=== PATIENT | female | born 1965 | race African-American/Black ===

== ENCOUNTER 2016-10-31 00:16 | Inpatient (IN) | payer MEDICARE, MEDICAID ==
[~2016-10-31] VITALS: Ht 175.3 cm; Wt 147.7 kg
--- NOTE | ~2016-10-31 | HEMODYNAMI ---
PATIENT:GILLIAN ARRIAGA MEDICAL RECORD: [id number] : 61 [id number] ADMISSION DATE: 10/31/16 Generatedon:10/31/201611:03 Patient name: GILLIAN ARRIAGA Patient #: [id number] SSN: : 1965 Date of study: 10/31/2016 Page: Of Hemodynamic Procedure Report Patient Data Patient Demographics Procedure consent was obtained First Name: GILLIAN Gender: Female Last Name: CORINA : 1965 Patient #: [id number] Age: 51 year(s) Race: Black Additional ID: [id number] Contact details [address]: [address] [place] [address] DRIVE State: [place] City: [place] Zip code: [address] Admission Admission Data Admission Date: 10/31/2016 Admission Time: 3:15 Room #: D.2119 Weight (lbs.): 326.29 Weight (kg.): 148 Procedure Procedure Types Cath Procedure Diagnostic Procedure LHC LHC w/Coronaries PCI Procedure Coronary Stent Initial Miscellaneous Procedures Moderate Sedation up to 30 minutes Procedure Description Procedure Date Procedure Date: 10/31/2016 Procedure Start Time: 10:38 Procedure End Time: 11:02 Procedure Staff Name Function Quinten Jules MD Performing Physician Naye Kaur RN Nurse Jose Lemos RT Monitor Guanakito Alcala RT Scrub Jacob Dumont RT Sealer Dry Cell Procedure Data Cath Procedure Fluoroscopy Diagnostic fluoroscopy Total fluoroscopy Time: 6.3 time: 6.3 min min Diagnostic fluoroscopy Total fluoroscopy dose: dose: 1484 mGy 1484 mGy Contrast Material Contrast Material Type Amount (ml) Isovue 300 197 Entry Location Entry Primary Successful Side Size Upsize Upsize Entry Closure Succes sful Closure Location (Fr) 1 (Fr) 2 (Fr) Remarks Device Remarks Femoral Right 5 Fr 6 Fr Exoseal artery Short Diagnostic catheters Device Type Used For End Catheter Placement Cordis 5Fr Pigtail LV Angiography Catheter (MP) Cordis 5Fr JL 4.0 Left Coronary Catheter (MP) Angiography Cordis 5Fr 3DRC Catheter Right Coronary (MP) Angiography Procedure Complications No complications Procedure Medications Medication Administration Route Dosage Oxygen NC 2 l/min Heparin Flush Bag added to field 2 bags (1000units/500ml NS) Lidocaine 2% added to field 20 Fentanyl I.V. 50 mcg Versed I.V. 1 mg Versed I.V. 1 mg Fentanyl I.V. 50 mcg Heparin Bolus I.V. 4000 units Integrilin (Bolus I.V. 11.3 ml 2mg/ml) Hemodynamics Rest Heart Rate: 76 (bpm) Snapshots Pre Cath Intra NCS Post Cath Vital Signs Time Heart Resp SPO2 NIBP (mmHg) Rhythm Pain Sedation Rate (ipm) (%) Status Level (bpm) 10:11:07 75 17 96 172/106(142) A-Fib 0 (11) 10(A) , No pain 10:15:23 77 19 98 173/102(118) A-Fib 0 (11) 10(A) , No pain 10:19:41 76 17 96 141/89(119) A-Fib 0 (11) 10(A) , No pain 10:23:47 77 16 96 136/87(116) A-Fib 0 (11) 10(A) , No pain 10:27:54 80 14 96 136/80(100) A-Fib 0 (11) 10(A) , No pain 10:32:00 92 15 96 125/85(106) A-Fib 0 (11) 10(A) , No pain 10:36:04 85 15 96 131/76(95) A-Fib 0 (11) 10(A) , No pain 10:40:08 73 16 96 134/84(110) A-Fib 0 (11) 9(A) , No pain 10:44:14 91 16 94 124/82(113) A-Fib 0 (11) 9(A) , No pain 10:48:15 85 16 95 128/81(106) A-Fib 0 (11) 9(A) , No pain 10:52:21 81 15 95 129/76(98) A-Fib 0 (11) 9(A) , No pain 10:56:23 80 20 95 143/88(113) A-Fib 0 (11) 9(A) , No pain 10:59:23 81 15 95 144/80(119) A-Fib 0 (11) 10(A) , No pain Medications Time Medication Route Dose Verified Delivered Reason Notes Effectiveness by by 10:10:48 Oxygen NC 2 Quinten Naye Per physician l/min Dhara Kaur RN 10:10:55 Heparin Flush added 2 Quinten Shipley used for Bag to bags Dhara Jules MD procedure (1000units/500ml field NS) 10:11:02 Lidocaine 2% added 20ml Quinten Hortonrey used for to vial Dhara Jules MD procedure field 10:28:06 Versed I.V. 1 mg Quinten Naye for sedation Dhara Kaur RN 10:28:33 Fentanyl I.V. 50 Quinten Naye for sedation mcg Dhara Kaur RN 10:32:06 Versed I.V. 1 mg Quinten Naye for sedation Dhara Kaur RN 10:34:13 Fentanyl I.V. 50 Quinten Naye for sedation mcg Dhara Kaur RN 10:43:47 Heparin Bolus I.V. 4000 Quinten Naye for dose units Dhara Karu RN anticoagulation verified wtih dr jules 10:45:38 Integrilin I.V. 11.3 Quinten Naye for wasted (Bolus 2mg/ml) ml Dhara Kaur RN antiplatelet 8.7 mL therapy Procedure Log Time Note 9:35:09 Jacob Dumont RT(R) (CV) sent for patient. Start room use. 9:49:05 ACC Patient presents with Unstable Angina CCS Anginal Class 3--Marked limitation of physical activity, angina occurs with ordinary activity.. 9:49:08 Diagnostic Cath status Urgent 9:49:10 Time tracking: Regular hours 9:49:14 Plan of Care:Hemodynamics will remain stable., Cardiac rhythm will remain stable., Comfort level will be maintained., Respiratory function will remain adequate., Patient/ family verbilizes understanding of procedure., Procedure tolerated without complication., Recovers from procedure without complications.. 9:59:30 Patient Weight : 148 kg 10:01:38 Patient received from PCU to CCL 2 Alert and oriented. Tansferred to table in Supine position. 10:01:40 Warm blankets applied, and myra hugger turned on for patient comfort. 10:01:41 Correct patient and procedure confirmed by team. 10:01:42 Signed procedure consent form obtained from patient. 10:01:42 ECG and BP/O2 sat monitors applied to patient. 10:03:58 H&P Date Dictated: 10/31/2016 Within 30 days and on chart.. 10:03:59 Pre-procedure instructions explained to patient. 10:04:00 Pre-op teaching completed and patient verbalized understanding. 10:04:21 Family unavailable. 10:04:22 Patient NPO since Midnight. 10:04:40 RIGHT ARM RESERVE 10:04:42 Is the patient allergic to Iodine/contrast media? No. 10:04:45 Is patient on blood thinner?Yes 10:04:48 ACC The patient was administered the following blood thiners within the last 24 hours: ACCAspirin, ACCPlavix 10:04:49 Patient diabetic? Yes. 10:04:51 If diabetic: On Metformin? No 10:04:54 Previous problem with sedation/anesthesia? No ? 10:04:55 Snore? Yes 10:04:56 Sleep apnea? Yes 10:04:57 Deviated septum? No 10:04:58 Opens mouth fully? Yes 10:04:58 Sticks out tongue? Yes 10:05:02 Airway obstruction? Yes COPD 10:05:04 Dentures? No ? 10:10:01 Vital chart was started 10:10:02 Baseline sample Acquired. 10:10:07 Rhythm: sinus rhythm 10:10:09 Full Disclosure recording started 10:10:15 Pre procedure: right dorsailis pedis pulse 1+ Palpable, but thready & weak; easily obliterated 10:10:29 PT HAS A RESERVE RT ARM. 10:10:31 Patient pain scale 0/10 ?. 10:10:42 IV patent on arrival in left antecubital with 0.9% NaCl at KVO. 10:10:48 Oxygen 2 l/min NC was administered by Naye Kaur RN; Per physician; 10:10:49 Lab results completed and on chart. 10:10:53 Right groin area was prepped with chlora-prep and draped in sterile fashion 10:10:55 Heparin Flush Bag (1000units/500ml NS) 2 bags added to field was administered by Quinten Jules MD; used for procedure; 10:10:55 Alarms reviewed by R. N. 10:10:55 Sharps counted by scrub and verified by R.N. 10:11:02 Lidocaine 2% 20ml vial added to field was administered by Quinten Jules MD; used for procedure; 10:17:44 Use device set Femoral Dx 10:17:45 Acist Syringe opened to sterile field. 10:17:45 Bag Decanter opened to sterile field. 10:17:45 Medline Cath Pack opened to sterile field. 10:17:46 Terumo 5Fr Garrison Sheath opened to sterile field. 10:17:46 St Enrico 260cm J .035 wire opened to sterile field. 10:17:47 Acist Hand Control opened to sterile field. 10:17:48 Acist Manifold opened to sterile field. 10:17:48 Diagnostic Infinity 5Fr Multipack catheter opened to sterile field. 10:17:48 Tegaderm 4 x 4 opened to sterile field. 10:24:34 Baseline sample Acquired. 10:27:44 Zero performed for pressure channel P1 10:27:49 --------ALL STOP TIME OUT------ 10:27:49 Final Timeout: patient, procedure, and site verified with staff and physician. All members of the team are in agreement. 10:27:51 Right groin site verified by team. 10:27:58 Physical assessment completed. ASA score P 2 - A patient with mild systemic disease as per Quinten Jules MD. 10:28:01 Sedation plan: IV Moderate Sedation Versed, Fentanyl 10:28:06 Versed 1 mg I.V. was administered by Naye Kaur RN; for sedation; 10:28:33 Fentanyl 50 mcg I.V. was administered by Naye Kaur RN; for sedation; 10:32:06 Versed 1 mg I.V. was administered by Naye Kaur RN; for sedation; 10:34:13 Fentanyl 50 mcg I.V. was administered by Naye Kaur RN; for sedation; 10:38:47 Procedure started. 10:38:57 Local anesthetic to right femoral artery with Lidocaine 2% by Quinten Jules MD.INITIAL ACCESS ONLY 10:39:05 A 5 Fr sheath was inserted into the Right Femoral artery 10:39:21 A Cordis 5Fr Pigtail Catheter (MP) was advanced over the wire and used for LV Angiography. 10:39:24 LV angiography performed. 10:39:26 LV gram done using PADGETT 10:39:38 EF : 70 % 10:39:42 Injector settings: Ml/sec: 10, Volume: 20, 10:39:43 Catheter removed. 10:39:49 A Cordis 5Fr JL 4.0 Catheter (MP) was advanced over the wire and used for Left Coronary Angiography. 10:39:52 LCA angiography performed. 10:40:53 Catheter removed. 10:41:08 RailpodumEdimer Pharmaceuticals 6Fr Garrison Sheath opened to sterile field. 10:41:08 Mytrusisper J 300cm 0.014 guide wire opened to sterile field. 10:41:09 [employer] Inflation Kit opened to sterile field. 10:41:12 A Cordis 5Fr 3DRC Catheter (MP) was advanced over the wire and used for Right Coronary Angiography. 10:41:14 RCA angiography performed. 10:41:51 Catheter removed. 10:42:[address] [employer] ([employer])tronic Launcher 6Fr AR 2.0 guide catheter opened to sterile field. 10:43:40 Sheath upsized to a 6 Fr Short. 10:43:46 6 Fr AR 2 guide catheter was inserted over the wire 10:43:47 Heparin Bolus 4000 units I.V. was administered by Naye Kaur RN; for anticoagulation; dose verified wtphill jules 10:43:49 WHISPER wire advanced. 10:45:21 Inflation Number: 1 A Medtronic Integrity 2.5 X 12 stent was prepped and advanced across the Dist RCA. The stent was deployed at 11 REBECA for 0:10 (min:sec). 10:45:38 Integrilin (Bolus 2mg/ml) 11.3 ml I.V. was administered by Naye Kaur RN; for antiplatelet therapy; wasted 8.7 mL 10:45:53 Inflation number: 2 The stent balloon was then re-inflated across the Dist RCA to 11 REBECA for 0:10 (min:sec). 10:46:11 Stent catheter was removed intact over wire. 10:46:12 Wire removed. 10:46:12 Guide catheter removed. 10:47:01 ACC PCI Site: dRCA has 80% stenosis. 10:47:03 ACC Pre-intervention LOC Flow is 3. 10:47:09 6 Fr EBU 4 guide catheter was inserted over the wire 10:47:14 WHISPER wire advanced. 10:48:05 Medtronic Launcher 6Fr EBU 4.0 guide catheter opened to sterile field. 10:48:12 Cordis 6Fr Exoseal opened to sterile field. 10:50:00 Procedure type changed to Cath procedure, Diagnostic procedure, LHC, LHC w/Coronaries, PCI procedure, Coronary Stent Initial, Miscellaneous Procedures, Moderate Sedation up to 30 minutes 10:50:35 The Medtronic Integrity 3.0 X 12 stent was advanced then removed because of failure to cross lesion 10:50:41 Stent catheter was removed intact over wire. 10:50:41 Wire removed. 10:50:42 Guide catheter removed. 10:51:12 Medtronic Launcher 6Fr EBU 4.5 guide catheter opened to sterile field. 10:51:20 Marcos Whisper J 300cm 0.014 guide wire opened to sterile field. 10:51:31 6 Fr EBU 4.5 guide catheter was inserted over the wire 10:52:00 NEW WHISPER wire advanced. 10:54:48 The Medtronic Integrity 3.0 X 12 stent was advanced then removed because of failure to cross lesion 10:54:53 Stent catheter was removed intact over wire. 10:54:54 Wire removed. 10:54:54 Guide catheter removed. 10:55:01 Sheath removed intact; hemostasis achieved with Exoseal to the Right Femoral artery. 10:55:21 Procedure ended.(Physican Out) 10:56:17 Fluoroscopy time 06.30 minutes. 10:56:21 Fluoroscopy dose: 1484 mGy 10:56:21 Flurop Dose total: 1484 10:56:33 Contrast amount:Isovue 300 197ml. 10:56:34 Sharps counted by scrub and verified by R.N. 10:56:34 Insertion/operative site no bleeding no hematoma. 10:56:37 Post-op/insertion site Right Femoral artery dressed using a 4 x 4 and Tegaderm. 10:56:40 Post right femoral artery:stable 10:56:42 Post Procedure Pulses reassessed and unchanged 10:56:43 Post procedure: right dorsailis pedis pulse 1+ Palpable, but thready & weak; easily obliterated. 10:56:47 Post procedure rhythm: sinus rhythm 10:56:48 Post procedure instruction explained to patient.Patient verbalizes understanding. 10:57:22 Procedure and supply charges have been captured, reviewed, submitted and are correct. 10:59:05 Procedure Complication : No complications 11:02:23 Vital chart was stopped 11:02:24 See physician's report for complete and final results. 11:02:25 Report given to PCU. 11:02:29 Patient transfered to PCU with Bed. 11:02:32 Procedure ended. 11:02:32 Full Disclosure recording stopped 11:02:47 ACC-PCI Only Patient was given prescriptions, or instructed by Quinten Jules MD to start/continue the following medications upon discharge: Plavix 11:02:48 End room use (Document Last) Intervention Summary Intervention Notes Time ActionType Lesion and Equipment Action# Pressure Duration Attributes Used 10:45:21 Place stent Dist RCA Medtronic 1 11 00:10 Integrity 2.5 X 12 stent 10:45:53 Reinflate Dist RCA Medtronic 2 11 00:10 stent Integrity balloon 2.5 X 12 stent 10:50:35 Discard Medtronic Stent Integrity 3.0 X 12 stent 10:54:48 Discard Medtronic Stent Integrity 3.0 X 12 stent Device Usage Item Name Manufacture Quantity Catalog Hospital Part Current Minimal L ot# / Number Charge Number Stock Stock Serial# Code Acist Acist 1 [id number] [id number] 886054 837184 20 Syringe Medical Systems Inc Bag Microtek 1 2002S 892509 13088 626197 5 [employer]om [employer] Inc. Medline Cardinal 1 [id number] 974712 24743 688687 5 Cath Pack Health Terumo 5Fr Terumo 1 [id number] 270314 204650 844040 [address] St Enrico 1 [id number] 262338 663100 262825 30 260cm J .035 wire Acist Hand Acist 1 19147 648714 838241 229192 5 Control Medical Systems Inc Acist Acist 1 56377 356503 762215 262639 5 Manifold Medical Systems Inc Diagnostic Cardinal 1 SD0984 276693 17074 033953 30 Car reviews 5Fr Multipack catheter Tegaderm 4 3M 1 1626W 853158 716022 366794 5 x 4 Cordis 5Fr Cardinal 1 668772 5 Pigtail Health Catheter (MP) Cordis 5Fr Cardinal 1 771201 5 JL 4.0 Health Catheter (MP) Terumo 6Fr Terumo 1 XAP325 630051 319426 484973 40 Garrison Sheath [employer] 2 [id number] 993106 669955 146102 5 Whisper J Vascular 300cm 0.014 guide wire [facility] 1 VS5834 155836 614242 096431 15 [facility] Medical Inflation Kit Cordis 5Fr Cardinal 1 341429 5 3DRC Health Catheter (MP) Medtronic Medtronic 1 [id number] 842998 29405 240961 1 Launcher 6Fr AR 2.0 guide catheter Medtronic Medtronic 1 [id number] 960410 308805 3 0 [id number] Integrity 2.5 X 12 stent Medtronic Medtronic 1 [id number] 712714 65764 546156 1 Launcher 6Fr EBU 4.0 guide catheter Cordis 6Fr Cardinal 1 EX600 762004 864158 975843 10 Exoseal Health Medtronic Medtronic 1 [id number] 888628 306707 1 0 [id number] Integrity 3.0 X 12 stent Medtronic Medtronic 1 [id number] 777769 56687 589220 0 Launcher 6Fr EBU 4.5 guide catheter Signature Audit [place] Stage Time Signature Unsigned Intra-Procedure 10/31/2016 Jose Lemos 11:03:24 AM RT(R) Signatures Monitor : Jose Lemos RT Signature : Date : Time : [facility] [address] [place] [address]
[~2016-10-31 00:16] MED LIST: ADVAIR 100/501 DISK INH; APRESOLINE25 MG PO; ATIVAN0.5 MG PO; BUSPAR10 MG PO; CATAPRES0.1 MG PO; CELEXA20 MG PO; CHILDREN'S ASPI81 MG PO; COREG25 MG PO; CRESTOR10 MG PO; DOXYCYCLINE HY100 M2 PO; DULERA 100 MCG8.8 GM INH; EFFEXOR100 MG PO; ELIQUIS5 MG PO; FISH OIL 1,0001 CA1 PO; FUROSEMIDE40 MG PO; GLIPIZIDE10 MG PO; HYDROCODON-ACE1 EAC6 PO; HYDROCODONE-APA1 TAB PO; IPRAT-ALBUT 0.5-3 ML UPD; ISOSORBIDE DINI20 MG PO; ISOSORBIDE MONO60 M1 PO; K-DUR20 MEQ PO; LANTUS INSULIN10 ML; LANTUS INSULIN10 ML SC; LASIX40 MG PO; LASIX80 MG PO; LYRICA75 MG PO; METOLAZONE2.5 MG PO; MIRALAX17 GM PO; NASONEX NASAL S17 GM NS; NORVASC10 MG PO; NOVOLOG100 U/M1 SC; PROTONIX40 MG PO; RISAMINE OINTM113 GM TP; ROCALTROL0.25 MCG PO; ROCALTROL0.5 MCG PO; RYTHMOL150 MG PO; TIAZAC/CARDIZE240 M1 PO; VENTOLIN HFA18 GM INH; ZAROXOLYN2.5 MG PO; ZESTRIL20 MG PO; ZYLOPRIM100 MG PO
[2016-10-31 01:08] LABS: BASOPHILS 0.2 % (0-2); EOSINOPHILS 0.6 % (0-7); HEMATOCRIT 40.5 % (36.0-48.0); HEMOGLOBIN 12.7 g/dL (12-16); IMMATURE GRANULOCYTES 0.5 % (0-5); MCH 28.4 pg (26.0-34.0); MCHC 31.4 g/dL (31.0-37.0); MCV 90.6 fL (80.0-100.0); MEAN PLATELET VOLUME 9.9 fL (7.4-10.4); MONOCYTES 4.8 % (2-11); NEUTROPHILS 77.9 % (40-80); RBC 4.47 10x6/uL (4.00-5.40); RDW 15.3 % (11.5-14.5); WBC 12.3 10x3/uL (4.8-10.8)
[2016-10-31 01:09] LABS: PLATELET COUNT 188 10x3/uL (130-400)
[2016-10-31 01:21] LABS: ALBUMIN 2.9 g/dL (3.4-5.0); ALKALINE PHOSPHATASE 190 U/L (46-116); ALT (SGPT) 11 U/L (10-68); CALC OSMOLALITY 288 mosm/kg (275-300); CALCIUM 8.8 mg/dL (8.5-10.1); CARBON DIOXIDE 26.9 mmol/L (21.0-32.0); CHLORIDE - SERUM 101 mmol/L (98-107); CREATININE - SERUM 7.8 mg/dL (0.6-1.3); POTASSIUM - SERUM 3.4 mmol/L (3.5-5.1); PROTEIN - SERUM 7.5 g/dL (6.4-8.2); SODIUM 137 mmol/L (136-145); UREA NITROGEN 61 mg/dL (7-18); eGFR NON AFRICAN AMERICAN 6 mL/min (90-120)
[2016-10-31 01:22] LABS: GLUCOSE 71 mg/dL (74-106)
[2016-10-31 01:39] LABS: CHOL - HDL RATIO 2.1 ratio (2.3-4.1); CHOLESTEROL, TOTAL 167 mg/dL (0-200); CKMB 1.3 U/L (0.0-3.6); CREATINE KINASE 50 UL (21-215); HDL CHOLESTEROL 81 mg/dL (32-96); LDL CHOLESTEROL 59 mg/dL (0-100); LDL-HDL RATIO 0.7 ratio (1.5-3.5); TRIGLYCERIDE 136 mg/dL (30-200)
[2016-10-31 01:40] LABS: TROPONIN-I 0.069 ng/mL (0.000-0.060)
--- NOTE | 2016-10-31 03:35 | NUR ---
REPORT RECEIVED FROM IOVNNE GOSS.
--- NOTE | 2016-10-31 03:50 | NUR ---
ARRIVED TO FLOOR VIA STRETCHER, ACCOMPANIED BY HOSPITAL STAFF. PLACED ON TELEMETRY AND ORIENTED TO UNIT. CALL LIGHT IN REACH. WILL CONTINUE TO MONITOR. SEE NURSE ASSESSMENT.
[2016-10-31 04:13] VITALS: BP 146/79
[2016-10-31] MEDS ORDERED: LANOXIN125 MCG PO (04:25)
[2016-10-31] MEDS ORDERED: PROAIR HFA8.5 GM INH (04:26)
[2016-10-31] MEDS ORDERED: BACLOFEN10 MG PO (04:26)
[2016-10-31] MEDS ORDERED: MIDODRINE HCL5 MG PO (04:27)
[2016-10-31] MEDS ORDERED: RENVELA800 MG PO (04:27)
[2016-10-31] MEDS ORDERED: SENSIPAR30 MG PO (04:27)
[2016-10-31] MEDS ORDERED: ELIQUIS2.5 MG PO (04:27)
[2016-10-31 04:28] VITALS: Ht 175.3 cm; Wt 147.7 kg
--- NOTE | 2016-10-31 07:04 | NUR ---
NO CHANGES FROM PREVIOUS ASSESSMENT, CALL LIGHT IN REACH.
[2016-10-31 08:08] VITALS: BP 112/63
--- NOTE | 2016-10-31 10:06 | NUR ---
CONSENTS SIGNED FOR [facility]. PRE-OPS GIVEN. TO MEDICAL ADMINISTRATIVE BY BED.
--- NOTE | 2016-10-31 11:23 | NUR ---
BACK FROM PET CAREGIVER. VS WNL. RIGHT GROIN STABLE WITHOUT BLEEDING OR HEMATOMA NOTED. WILL MONITOR.
[2016-10-31] MEDS ORDERED: PLAVIX75 MG PO (13:18)
--- NOTE | 2016-10-31 14:14 | NUR ---
LEAVING FOR DIALYSIS BY BED.
--- NOTE | 2016-10-31 15:03 | NUR ---
Patient Name: GILLIAN ARRIAGA Admission Status: ER Accout number: [id number] Admission Date: 10-31-2016 : 1965 Admission Diagnosis:CHEST PAIN, UNSPECIFIED Attending: SASCHA Current LOS: 1 Anticipated DC Date: 10-31-2016 Planned Disposition: Home with Home Health Primary Insurance: MEDICARE A & B PREFERRED DISCHARGE PLAN: [facility] Discharge Planning Comments: * Is the patient Alert and Oriented? Yes 0 * How many steps to enter\exit or inside your home? NONE 0 * PCP DR. ISAIAH CHENG 0 * Pharmacy [facility] 0 * Preadmission Environment Home Alone 0 * ADLs Partial Dependent 0 * Partial ADLs (Assistance needed) Bathing 0 * Equipment Bedside Commode CPAP Glucometer Hospital Bed Nebulizer Oxygen Shower Chair Walker 0 * Other Equipment [facility] EMERGENCY [facility]- MEDICAL EQUIPMENT PROVIDER 0 * List name and contact numbers for known caregivers / representatives who currently or will assist patient after discharge: MARY HEMPHILL, DAUGHTER, 0 * Community resources currently utilized Home Health Other Private Duty Care 0 * Please name any agencies selected above. -[facility] - NURSING -OUTPATIENT DIALYSIS, [facility], MWF, 0630, DAUGHTER TRANSPORTS -DAUGHTER PAID BY [facility] FOR 21 HOURS PERSONAL CARE PER WEEK 0 * Additional services required to return to the preadmission environment? No 0 * Can the patient safely return to the preadmission environment? Yes 0 * Has this patient been hospitalized within the prior 30 days at any hospital? No 0 CM MET WITH PT AND DAUGHTER IN ROOM TO DISCUSS DISCHARGE PLANNING AND NEEDS. PT REPORTS LIVING AT HOME INDEPENDENTLY, HER DAUGHTER IS PAID BY MEDICAID THROUGH [facility] TO ASSIST PT FOR 21 HOURS OF PERSONAL CARE PER WEEK. PT'S DAUGHTER REPORTS SHE IS THERE A LOT MORE THAN THAT. PT REPORTS HAVING ALL NEEDED MEDICAL EQUIPMENT FROM [facility] EMERGENCY DEPARTMENT AT HOME. PT HAS HOME HEALTH FROM [facility], ATTENDS OUTPATIENT DIALYSIS ON MWF, 0630, [facility], DAUGHTER TRANSPORTS. PT DENIES DISCHARGE NEEDS OTHER THAN HOME HEALTH RESUMPTION. PT'S DAUGHTER TO TRANSPORT PT HOME TODAY. CM CALLED [facility], , SPOKE TO MARYCARMEN TO RESUME PT'S HOME HEALTH, CM FAXED DISCHARGE INFORMATION TO [facility] AT [phone]. NO FURTHER DISCHARGE NEEDS IDENTIFIED. Proofer Prepress: Con [facility]
--- NOTE | 2016-10-31 18:23 | NUR ---
BACK FROM DIALYSIS. VS STABLE.
--- NOTE | 2016-11-01 00:39 | NUR ---
INITIAL ROUNDS COMPETED AT 5 HRS. INFORMED PT WILL DC SOON. IV TO LFA DC'D WITH CATHETER INTACT. R GROIN CLEAN, DRY AND INTACT WITHOUT SWELLING, BRUISING OR BLEEDING. PALPABLE PEDAL PULSES. PT DENIED ANY DISCOMFORT. INFORMED PT AND FAMILY MEMBER TO CALL P[facility]LO FOR ANY BLEEDING, SWELLING, OR SEVERE PAIN TO R GROIN. RX FOR PLAVIX GIVEN. INFORMED TO FILL TONIGHT OR IN AM. INSTRUCTIONS GIVEN AND EXPLAINED TO PT. STATED VERBAL UNDERSTANDING. TO POV VIA W/C AT 1934 HRS.
--- NOTE | 2016-11-04 18:07 | CN ---
PATIENT NAME:GILLIAN PETIT MEDICAL RECORD: [id number] : 61 LOCATION:D.M2 D.2119 ADMIT DATE: 10/31/16 ACCOUNT: [id number] CONSULTING PHYSICIAN: EKATERINA VALDEZ MD REFERRING PHYSICIAN: KALIA TAPIA MD DATE OF CONSULTATION: 10/31/2016 DIAGNOSES: 1. Non-Q-wave myocardial infarction. 2. End-stage renal failure, on dialysis. 3. Diabetes. 4. Hypertension. 5. Hyperlipidemia. 6. Chronic obstructive pulmonary disease. 7. Smoking history. 8. Obesity. HISTORY OF PRESENT ILLNESS: Mrs. Petit presents with severe chest pain. She did rule in for a non-Q-wave myocardial infarction. She has not had a history of ischemic heart disease in the past. She continued to have chest pain this morning. She is set to dialyze Thursday, Thursday and Thursday. PHYSICAL EXAMINATION: GENERAL APPEARANCE: Well-nourished, well-developed, appears stated age. Level of distress, comfortable. PSYCHIATRIC: Mental status, alert, normal affect. Orientation, oriented to time, place and person. EYES: Lids and conjunctiva, noninjected. No discharge, no pallor. ENT: Lips, teeth, gums, normal dentition. Oropharynx, no cyanosis, no pallor. NECK: Carotid arteries, bilateral normal upstroke, no bruits, no thrills. JUGULAR VEINS: No jugular venous pressure or distention. CERVICAL LYMPH NODES: Nontender, nonenlarged. THYROID: Not enlarged. Nontender. No nodules. LUNGS: Respiratory effort, unlabored. CHEST: Normal curvature. No thoracic deformity. No chest wall tenderness. Percussion, resonant. Auscultation, clear. No wheezes, no rales, no rhonchi. CARDIOVASCULAR: Precordial exam, nondisplaced. No heaves or pericardial thrills. Rate and rhythm, regular. Heart sounds, normal S1, normal S2. No S3, no gallop, no rub. Systolic murmur, not heard. Diastolic murmur, not heard. EXTREMITIES: No cyanosis, no edema. Peripheral pulses, full and equal in all extremities, except as noted. No bruits appreciated. ABDOMEN: Soft, nondistended. Normal aorta. No bruit. Nontender. No masses. Liver, nontender, no hepatomegaly. Spleen, nontender, no splenomegaly. MUSCULOSKELETAL: No joint tenderness. No joint swelling. No erythema. NEUROLOGICAL: Normal gait, normal strength, normal tone. SKIN: Warm and dry. REVIEW OF SYSTEMS: The patient reports easy bruising but reports no swollen glands. The patient reports no fever, no night sweats, no significant weight gain, no significant weight loss. No significant exercise tolerance. The patient reports no dry eyes, no irritation, no vision change. Patient reports no difficulty hearing and no ear pain. Patient reports no frequent nose bleeds or nose and sinus problems. Patient reports on arm pain on exertion. No shortness of breath while lying down. No history of heart murmur. Patient reports no cough, no wheezing or coughing up blood. Patient reports no CONSULT REPORT [id number] GILLIAN PETIT abdominal pain, no vomiting. Normal appetite. No diarrhea and not vomiting blood. No nausea and no constipation. Patient reports no incontinence. No difficulty urinating. No hematuria. No increased frequency. Patient reports no muscle aches. No weakness, no arthralgias, no back pain. No swelling of the extremities. Patient reports no abnormal mole, no jaundice, no rashes. Reports no loss of consciousness. No weakness and no numbness. No seizures, dizziness, or headaches. The patient reports no depression, no sleep disturbance, feeling safe in a relationship and no alcohol abuse. Patient reports on fatigue. Reports no runny nose or sinus pressure. No itching, no hives, and no frequent sneezing. OVERALL IMPRESSION: Chest pain, ongoing, with a non-Q-wave myocardial infarction. Most likely, she has hemodynamically significant coronary artery disease. We will proceed with coronary angiography. Further care depends upon the findings of angiography. TRANSINT:[id number] Voice Confirmation ID: [id number] DOCUMENT ID: [id number] EKATERINA VALDEZ MD at 1807 CC: [id number] DICTATION DATE: 10/31/16940 ASSOCIATE PROFESSOR OF SURGERY: 10/31/16955 DIS IN 10/31/16 [facility] [address] [id number]
--- NOTE | 2016-11-04 18:07 | OP ---
PATIENT NAME: GILLIAN ARRIAGA MEDICAL RECORD: [id number] :61 LOCATION:D.M2 D.2119 ADMISSION DATE:10/31/16 SURGEON: EKATERINA VALDEZ MD DATE OF OPERATION: 10/31/2016 PROCEDURES: 1. PTCA stent RCA. 2. Left heart catheterization. 3. Selective coronary angiography. 4. Left ventriculogram. INDICATION: Angina, non-Q-wave myocardial infarction, and coronary artery disease. PROCEDURE: After informed consent was obtained and after detailed explanation of risks, benefits as well as alternative therapies, the patient elected to proceed with angiogram and angioplasty. The right femoral area was prepped and draped in normal sterile fashion. The right femoral artery was cannulated via modified Seldinger technique with placement of 6-Pashto sheath. All catheters exchanged through this sheath. FINDINGS: Left ventriculogram was performed in standard 30-degree PADGETT view reveals good cardiac wall motion throughout all segments. Overall ejection fraction estimated at 60%. SELECTIVE CORONARY ANGIOGRAPHY: 1. Left main showed no significant angiographic disease. 2. Left anterior descending has moderate irregularities, but no flow-limiting stenosis. 3. The left circumflex is very tortuous. There is a 50% to 70% stenosis in the distal vessel; however, due to the extreme tortuosity, this is not amenable to transcatheter revascularization. 4. The right coronary has an 80% stenosis of the PDA. PTCA STENT OF THE RIGHT CORONARY: The stent used was a 2.5 x 12 mm Integrity taken to 17 atmospheres. Result was 0% residual stenosis. OVERALL IMPRESSION: Successful percutaneous transluminal coronary angioplasty stent of the right coronary artery going from 80% initial stenosis to 0% residual. PLAN: For medical management of the concomitant disease of the left circumflex. TRANSINT:[id number] Voice Confirmation ID: [id number] DOCUMENT ID: [id number] EKATERINA VALDEZ MD at 1807 CC: [id number] DICTATION DATE: 10/31/16 1101 METAL TEMPERER: 10/31/16 1832 DIS IN 10/31/16 [facility] [address] [place] [address]
== END 2016-10-31 19:35 | disposition home health service (06) | DRG 248 ==
LOC: D.ER 00:16 → D.M2 03:15
PROVIDERS: Emergency Medicine; Internal Medicine Interventional Cardiology; ADMIT Internal Medicine Nephrology
PROC: 4A023N7 Measurement of Cardiac Sampling and Pressure, Left Heart, Percutaneous Approach (ICD-10-PCS; 2016-10-31)
PROC: B2111ZZ Fluoroscopy of Multiple Coronary Arteries using Low Osmolar Contrast (ICD-10-PCS; 2016-10-31)
PROC: B2151ZZ Fluoroscopy of Left Heart using Low Osmolar Contrast (ICD-10-PCS; 2016-10-31)
PROC: 5A1D00Z (ICD-10-PCS; principal; 2016-10-31 10:00)
PROC: 02703DZ Dilation of Coronary Artery, One Artery with Intraluminal Device, Percutaneous Approach (ICD-10-PCS; 2016-10-31 10:00)
DX: I21.4 Non-ST elevation (NSTEMI) myocardial infarction (principal); N18.6 End stage renal disease; I12.0 Hypertensive chronic kidney disease with stage 5 chronic kidney disease or end stage renal disease; I25.119 Atherosclerotic heart disease of native coronary artery with unspecified angina pectoris; E11.22 Type 2 diabetes mellitus with diabetic chronic kidney disease; Z99.2 Dependence on renal dialysis; E78.5 Hyperlipidemia, unspecified; J44.9 Chronic obstructive pulmonary disease, unspecified; E66.9 Obesity, unspecified; Z72.0 Tobacco use

== ENCOUNTER 2017-01-07 11:28 | Observation (INO) | payer MEDICARE ==
[~2017-01-07] VITALS: Ht 175.3 cm; Wt 110.6 kg
--- NOTE | ~2017-01-07 | HEMODYNAMI ---
PATIENT:GILLIAN ARRIAGA MEDICAL RECORD: [id number] : 61 LOCATION:[facility] D.2107 [id number] ADMISSION DATE: 01/07/17 Generatedon:01/08/201714:50 Patient name: GILLIAN ARRIAGA Patient #: [id number] SSN: : 1965 Date of study: 01/08/2017 Page: Of Hemodynamic Procedure Report Patient Data Patient Demographics Procedure consent was obtained First Name: GILLIAN Gender: Female Last Name: CORINA : 1965 [facility] Initial: JAMIR Burrows Age: 51 year(s) Patient #: [id number] Race: Black Additional ID: [id number] Contact details Address: [address] State: [place] City: [place] Zip code: [address] Past Medical History Allergies Allergen Reaction Date Comments Reported Penicillins 01/08/2017 Morphine 01/08/2017 Other allergy 01/08/2017 keflex, Lyrica, Januvia, Adhesive tape Admission Admission Data Admission Date: 01/07/2017 Admission Time: 11:28 Room #: D.2107 Lab Results Lab Result Date: 01/07/2017 Lab Result Time: 0:00 Biochemistry Name Units Result Min Max BUN mg/dl 36 --(----)-* 7 18 Creatinine mg/dl 6.2 --(----)-* 0.6 1.3 Potassium mmol/l 3 *-(----)-- 3.5 5.1 CBC Name Units Result Min Max Hemoglobin g/dl 11.7 *-(----)-- 13.5 17.5 Procedure Procedure Types Cath Procedure Diagnostic Procedure C [facility] w/Coronaries Procedure Description Procedure Date Procedure Date: 01/08/2017 Procedure Start Time: 14:37 Procedure End Time: 14:49 Procedure Staff Name Function Raheel Joshi MD Performing Physician Nora Maddox RT Scrub Kelvin Rodriguez RN Nurse Jacob Dumont RT Monitor Procedure Data Cath Procedure Fluoroscopy Diagnostic fluoroscopy Total fluoroscopy Time: 1.2 time: 1.2 min min Diagnostic fluoroscopy Total fluoroscopy dose: 558 dose: 558 mGy mGy Contrast Material Contrast Material Type Amount (ml) Isovue 300 64 Entry Location Entry Primary Successful Side Size Upsize Upsize Entry Closure Succes sful Closure Location (Fr) 1 (Fr) 2 (Fr) Remarks Device Remarks Femoral Right 5 Fr Exoseal artery Estimated blood loss: 10 ml Diagnostic catheters Device Type Used For End Catheter Placement Cordis 5Fr JL 4.0 Procedure Catheter (MP) Cordis 5Fr 3DRC Catheter Procedure (MP) Cordis 5Fr Pigtail Procedure Catheter (MP) Procedure Medications Medication Administration Route Dosage Oxygen NC 2 l/min Heparin Flush Bag added to field 2 bags (1000units/500ml NS) 0.9% NaCl I.V. 100 ml/hr Fentanyl I.V. 50 mcg Versed I.V. 1 mg Fentanyl I.V. 50 mcg Versed I.V. 1 mg Zofran I.V. 4 mg Fentanyl I.V. 50 mcg Versed I.V. 1 mg Fentanyl I.V. 50 mcg Versed I.V. 1 mg Hemodynamics Rest HGB: 11.7 (g/dl) Heart Rate: 72 (bpm) Pressure Samples Time Site Value (mmHg) Purpose Heart Use Rate(bpm) 14:43 LV 102/4,16 Snapshot 64 14:43 AO 83/50(64) Pullback 67 14:43 LV 98/7,20 Pullback 67 Gradients Valve Time Site 1 Site 2 Mean SEP/DFP Peak To Heart Use (mmHg) (sec/min) Peak Rate (mmHg) (bpm) Aortic 14:43 LV AO 14 10 15 67 98/7,20 83/50(64) Calculations Valve P-P Mean Valve Index Valve Source Name Gradient Area Flow (cm2) Aortic 15 14 15 14 Snapshots Pre Cath Intra NCS Post Cath Vital Signs Time Heart Resp SPO2 NIBP (mmHg) Rhythm Pain Sedation Rate (ipm) (%) Status Level (bpm) 14:04:52 67 18 94 121/75(101) NSR 0 (11) 10(A) , No pain 14:09:06 62 16 98 114/75(91) NSR 0 (11) 10(A) , No pain 14:13:18 71 18 100 117/75(104) NSR 0 (11) 10(A) , No pain 14:17:30 66 19 98 116/73(98) NSR 0 (11) 10(A) , No pain 14:21:40 64 19 98 105/75(91) NSR 0 (11) 10(A) , No pain 14:25:54 79 18 97 101/60(78) NSR 0 (11) 10(A) , No pain 14:30:06 70 18 98 101/59(81) NSR 0 (11) 10(A) , No pain 14:34:16 63 17 97 95/62(86) NSR 0 (11) 9(A) , No pain 14:38:23 65 18 96 83/59(70) NSR 0 (11) 9(A) , No pain 14:42:29 66 19 94 90/56(67) NSR 0 (11) 9(A) , No pain 14:46:39 67 17 95 90/52(66) NSR 0 (11) 9(A) , No pain Medications Time Medication Route Dose Verified Delivered Reason Notes Effec tiveness by by 14:04:35 Oxygen NC 2 Kelvin Kelvin Per l/min Michael Rodriguez RN physician RN 14:10:13 Heparin Flush added 2 Kelvin Kelvin used for Bag to bags Michael Rodriguez biology specialist (1000units/500ml field RN NS) 14:10:30 0.9% NaCl I.V. 100 Kelvin Kelvin Per ml/hr Michael Rodriguez RN physician RN 14:11:35 Zofran I.V. 4 mg Kelvin Kelvin Per Michael Rodriguez RN physician RN 14:30:53 Fentanyl I.V. 50 Kelvin Kelvin for [facility] Michael Rodriguez RN sedation RN 14:31:00 Versed I.V. 1 mg Kelvin Kelvin for Michael Rodriguez RN sedation RN 14:32:59 Fentanyl I.V. 50 Kelvin Kelvin for [facility] Michael Rodriguez RN sedation RN 14:33:03 Versed I.V. 1 mg Kelvin Kelvin for Michael Rodriguez RN sedation RN 14:37:43 Fentanyl I.V. 50 Kelvin Kelvin for [facility] Michael Rodriguez RN sedation RN 14:37:46 Versed I.V. 1 mg Kelvin Kelvin for Michael Rodriguez RN sedation RN 14:42:47 Fentanyl I.V. 50 Kelvin Warren for mcg Michael Rodriguez RN sedation RN 14:42:49 Versed I.V. 1 mg Kelvin Warren for Michael Rodriguez RN sedation digital sales representative Log Time Note 13:40:32 Jacob Tim RT(R) (CV) sent for patient. Start room use. 14:03:45 Vital chart was started 14:04:35 Oxygen 2 l/min NC was administered by Kelvin Rodriguez RN; Per physician; 14:08:33 Informed consent obtained and on chart 14:08:37 Diagnostic Cath Status : Elective 14:09:59 Time tracking: Regular hours 14:10:04 Plan of Care:Hemodynamics will remain stable., Cardiac rhythm will remain stable., Comfort level will be maintained., Respiratory function will remain adequate., Patient/ family verbilizes understanding of procedure., Procedure tolerated without complication., Recovers from procedure without complications.. 14:10:12 Patient received from PCU to CCL 2 Alert and oriented. Tansferred to table in Supine position. 14:10:13 Heparin Flush Bag (1000units/500ml NS) 2 bags added to field was administered by Kelvin Rodriguez RN; used for procedure; 14:10:14 Warm blankets applied, and myra hugger turned on for patient comfort. 14:10:15 Correct patient and procedure confirmed by team. 14:10:30 0.9% NaCl 100 ml/hr I.V. was administered by Kelvin Rodriguez RN; Per physician; 14:11:04 Patient in [facility] as last name Diamond from 12/26/2016 14:11:07 Baseline sample Acquired. 14:11:17 Rhythm: atrial fibrillation 14:11:20 Full Disclosure recording started 14:11:35 Zofran 4 mg I.V. was administered by Kelvin Rodriguez RN; Per physician; 14:14:22 Pre-procedure instructions explained to patient. 14:14:23 Pre-op teaching completed and patient verbalized understanding. 14:14:26 Family unavailable. 14:14:29 Patient NPO since Breakfast. 14:14:54 Patient allergic to Penicillins 14:15:19 Patient allergic to Morphine 14:16:49 Patient allergic to Other allergy keflex, Lyrica, Januvia, Adhesive tape 14:17:08 H&P Date Dictated: 01/08/2017 Within 30 days and on chart.. 14:17:13 Is the patient allergic to Iodine/contrast media? No. 14:17:16 Is patient on blood thinner?Yes 14:17:21 ACC The patient was administered the following blood thiners within the last 24 hours: ACCPlavix 14:18:55 Patient diabetic? Yes. 14:18:57 If diabetic: On Metformin? No 14:22:06 ----Pre-sedation anethsthesia assessment.---- 14:22:08 Previous problem with sedation/anesthesia? No ? 14:22:10 Snore? Yes 14:22:12 Sleep apnea? Yes 14:22:16 Zero performed for pressure channel P1 14:22:44 Deviated septum? No 14:22:55 Opens mouth fully? Yes 14:22:57 Sticks out tongue? Yes 14:23:53 Airway obstruction? Yes COPD 14:23:59 Dentures? No ? 14:24:24 Pre procedure: right dorsailis pedis pulse Doppler 14:24:29 Patient pain scale 0/10 ?. 14:24:36 IV patent on arrival in left forearm with 0.9% NaCl at [facility]. 14:25:19 Lab Result : Hemoglobin 11.7 g/dl 14:25:35 Lab results completed and on chart. 14:25:43 Right groin area was prepped with chlora-prep and draped in sterile fashion 14:25:46 Alarms reviewed by R. N. 14:25:46 Sharps counted by scrub and verified by R.N. 14:27:47 Lab Result : BUN 36 mg/dl 14:27:47 Lab Result : Creatinine 6.2 mg/dl 14:28:23 Lab Result : Potassium 3 mmol/l 14:29:09 Dr. Joshi done in room 3 14:29:52 Use device set Femoral Dx 14:29:59 Acist Syringe opened to sterile field. 14:29:59 Bag Decanter opened to sterile field. 14:30:00 Medline Cath Pack opened to sterile field. 14:30:01 Terumo 5Fr [facility] She[facility] opened to sterile field. 14:30:02 St Enrico 260cm J .035 wire opened to sterile field. 14:30:04 Acist Hand Control opened to sterile field. 14:30:05 Acist Manifold opened to sterile field. 14:30:07 Diagnostic Infinity 5Fr Multipack catheter opened to sterile field. 14:30:08 Tegaderm 4 x 4 opened to sterile field. 14:30:24 Physician arrived 14:30: --------ALL STOP TIME OUT------ 14:30: Final Timeout: patient, procedure, and site verified with staff and physician. All members of the team are in agreement. 14:30: Right groin site verified by team. 14:30:35 Physical assessment completed. ASA score P 2 - A patient with mild systemic disease as per Raheel oJshi MD. 14:30:39 Sedation plan: IV Moderate Sedation Versed, Fentanyl 14:30:53 Fentanyl 50 mcg I.V. was administered by Kelvin Rodriguez RN; for sedation; 14:31:00 Versed 1 mg I.V. was administered by Kelvin Rodriguez RN; for sedation; 14:32:59 Fentanyl 50 mcg I.V. was administered by Kelvin Rodriguez RN; for sedation; 14:33:03 Versed 1 mg I.V. was administered by Kelvin Rodriguez RN; for sedation; 14:37:28 Procedure started. 14:37:43 Fentanyl 50 mcg I.V. was administered by Kelvin Rdoriguez RN; for sedation; 14:37:46 Versed 1 mg I.V. was administered by Kelvin Rodriguez RN; for sedation; 14:37:53 Local anesthetic to right femoral artery with Lidocaine 2% by Raheel Joshi MD.INITIAL ACCESS ONLY 14:38:37 A 5 Fr sheath was inserted into the Right Femoral artery 14:38:53 A Cordis 5Fr JL 4.0 Catheter (MP) was advanced over the wire and used for Procedure. 14:39:43 LCA angiography performed. 14:40:24 Catheter removed. 14:40:48 A Cordis 5Fr 3DRC Catheter (MP) was advanced over the wire and used for Procedure. 14:41:30 RCA angiography performed. 14:41:46 Catheter removed. 14:41:53 A Cordis 5Fr Pigtail Catheter (MP) was advanced over the wire and used for Procedure. 14:42:47 Fentanyl 50 mcg I.V. was administered by Kelvin Rodriguez RN; for sedation; 14:42:49 Versed 1 mg I.V. was administered by Kelvin Rodriguez RN; for sedation; 14:42:51 Cordis 5Fr Exoseal opened to sterile field. 14:43:25 LV hemodynamics recorded. 14:43:31 EF : 50 % 14:43:58 Catheter removed. 14:44:16 Sheath removed intact; hemostasis achieved with Exoseal to the Right Femoral artery. 14:44:36 Procedure ended.(Physican Out) 14:47:07 Fluoroscopy time 01.20 minutes. 14:47:13 Fluoroscopy dose: 558 mGy 14:47:13 Flurop Dose total: 558 14:47:19 Contrast amount:Isovue 300 64ml. 14:47:21 Sharps counted by scrub and verified by R.N. 14:47:41 Insertion/operative site no bleeding no hematoma. 14:47:46 Post-op/insertion site Right Femoral artery dressed using a 4 x 4 and Tegaderm. 14:47:50 Post right femoral artery:stable 14:47:59 Post-procedure physical assessment completed. ASA score P 2 - A patient with mild systemic disease as per Raheel Joshi MD. 14:48:30 Post procedure rhythm: unchanged., atrial fibrillation 14:48:35 Estimated blood loss: 10 ml 14:48:41 Post procedure instruction explained to patient.Patient verbalizes understanding. 14:48:44 Patient needs reinforcement of post procedure teaching. 14:48:46 Procedure and supply charges have been captured, reviewed, submitted and are correct. 14:49:30 Vital chart was stopped 14:49:31 See physician's report for complete and final results. 14:49:36 Report given to [facility]. 14:49:39 Patient transfered to [facility] with Bed. 14:49:41 Procedure ended. 14:49:41 Full Disclosure recording stopped 14:49:46 End room use (Document Last) Device Usage Item Name Manufacture Quantity Catalog Hospital Part Current Minimal Lo t# / Number Charge Number Stock Stock Serial# Code Acist Acist 1 98946 523016 914859 183374 20 Syringe Medical Systems Inc Bag Microtek 1 2002S 610574 37968 067361 5 [employer]. Medline Cardinal 1 [id number] 826770 34278 320884 5 Cath Pack Health Terumo 5Fr Terumo 1 EBM286 692879 084124 385265 [address] Enrico 1 933866 867584 033175 766560 30 260cm J .035 wire Acist Hand Acist 1 59232 448093 332966 967108 5 Control Medical Systems Inc Acist Acist 1 44036 049208 152930 507838 5 Manifold Medical Systems Inc Diagnostic Cardinal 1 SI4985 430705 49097 957213 30 Infinity Health 5Fr Multipack catheter Tegaderm 4 3M 1 1626W 479282 079900 567941 5 x 4 Cordis 5Fr Cardinal 1 074738 5 JL 4.0 Health Catheter (MP) Cordis 5Fr Cardinal 1 [id number] 5 3DRC Health Catheter (MP) Cordis 5Fr Cardinal 1 429174 5 Pigtail Health Catheter (MP) Cordis 5Fr Cardinal 1 EX500 399090 261683 457940 10 [facility] Signature Audit [place] Stage Time Signature Unsigned Intra-Procedure 01/08/2017 Jacob Dumont 2:50:18 PM RT(R) (CV) Signatures Monitor : Jacob Dumont RT Signature : Date : Time : [place] [id number] [facility] [address]
[~2017-01-07 11:28] MED LIST changes: +BACLOFEN10 MG PO; +ELIQUIS2.5 MG PO; +LANOXIN125 MCG PO; +MIDODRINE HCL5 MG PO; +PLAVIX75 MG PO; +PROAIR HFA8.5 GM INH; +RENVELA800 MG PO; +SENSIPAR30 MG PO
[2017-01-07 12:10] VITALS: BP 103/51
--- NOTE | 2017-01-07 12:23 | NUR ---
PAGED DR TRINIDAD FOR MEDICATION ORDERS. C/O CHEST PAIN. AND N/V. PT ON TELE RUNNING CONTROLLED AFIB 70 BPM. WILL CONT TO MONITOR
--- NOTE | 2017-01-07 12:53 | NUR ---
SPOKE WITH DR TRINIDAD. REORDERED HOME MEDS AND ZOFRAN. SAID TO HOLD ELIQUIS FOR NOW. STUDENT NETEZZA DEVELOPER TRIED TO SITE PT X2 STICKS. CALLED MARTI AVERY TO TRY AND START IV FOR PT.
--- NOTE | 2017-01-07 13:11 | NUR ---
CONSENTS FOR HEART CATH SIGNED AND ON THE CHART. ALSO CONSENT FOR BLOOD.
[2017-01-07 13:31] LABS: BASOPHILS 0.1 % (0-2); EOSINOPHILS 0.4 % (0-7); HEMATOCRIT 38.2 % (36.0-48.0); HEMOGLOBIN 11.7 g/dL (12-16); IMMATURE GRANULOCYTES 0.5 % (0-5); LYMPHOCYTES 14.3 % (15-50); MCH 25.3 pg (26.0-34.0); MCHC 30.6 g/dL (31.0-37.0); MCV 82.7 fL (80.0-100.0); MEAN PLATELET VOLUME 9.5 fL (7.4-10.4); MONOCYTES 5.3 % (2-11); NEUTROPHILS 79.4 % (40-80); PLATELET COUNT 195 10x3/uL (130-400); RBC 4.62 10x6/uL (4.00-5.40); WBC 11.3 10x3/uL (4.8-10.8)
[2017-01-07 13:36] LABS: DIGOXIN 1.16 ng/mL (0.90-2.00)
--- NOTE | 2017-01-07 15:56 | NUR ---
MARTI TRIED TO SITE PT. PIV WAS NOT GOOD. DC WITH CATH TIP INTACT.
[2017-01-07 16:27] VITALS: BP 111/61
--- NOTE | 2017-01-07 18:04 | NUR ---
PT SITTING UP IN BED DENIES NEEDS FAMILY AT BEDSIDE
[2017-01-07 19:00] VITALS: BP 87/43
--- NOTE | 2017-01-07 19:40 | NUR ---
PT AWAKE, ALERT, ORIENTED, REQUESTING PAIN MEDICATION, STATES SHE HURTS ALL OVER. PT IS IN NO ACUTE DISTRESS AT THIS TIME. I EXPLAINED THAT HER PAIN MEDICATION IS ORDERED PRN Q 8 HOURS AND IT WAS TOO EARLY. PT STATES HER NAUSEA IS IMPROVED WITH ZOFRAN, AND SHE WAS ABLE TO KEEP DOWN HER BROTH. PT DENIES ANY OTHER NEEDS AT THIS TIME. WILL CONTINUE TO MONITOR CLOSELY.
[2017-01-08] VITALS: BP 84/40
--- NOTE | 2017-01-08 05:15 | NUR ---
PT HAS HAD RECURRENT BOUTS OF NAUSEA WITH VOMITING OF GREEN BILE MOST OF SHIFT. PRN PO ODT ZOFRAN BEING GIVEN Q 4 WITHOUT MUCH CONTROL. ECG PRINTED OFF FROM TELEMETRY AND CARDIAC ENZYMES ORDERED FOR THIS A.M. PT REMAINS IN CONTROLLED A-FIB, WHICH SHE STATES IS HER CHRONIC BASELINE. PT STATES SHE TAKES DIGOXIN ONLY ON THE DAYS SHE HAS DIALYSIS. PT IS AWAKE, ALERT, ORIENTED, AND WISHES TO HAVE SOMETHING FOR BETTER CONTROL OF HER N/V. PT DID SHOWER THIS A.M. CONTINUE TO MONITOR CLOSELY.
--- NOTE | 2017-01-08 06:45 | NUR ---
LEFT FOREARM IV SITED BY AMANUEL CHAN RN WITH ONE ATTEMPT, 22 GAUGE, SL
--- NOTE | 2017-01-08 07:30 | NUR ---
AM ROUNDS COMPLETED. COMMUNICATION BOARD FILLED OUT. PT RESTING QUIETLY IN BED WITH EYES CLOSED. RR NONLABORED. CL IN REACH, BED IN LOWEST, SIDE RAILS X2. WILL CHART CHECK AND CPOC.
[2017-01-08 08:05] LABS: CALC OSMOLALITY 286 mosm/kg (275-300); CALCIUM 7.7 mg/dL (8.5-10.1); CHLORIDE - SERUM 98 mmol/L (98-107); CKMB 0.6 U/L (0.0-3.6); CREATINE KINASE 40 UL (21-215); CREATININE - SERUM 6.2 mg/dL (0.6-1.3); GLUCOSE 120 mg/dL (74-106); SODIUM 139 mmol/L (136-145); TROPONIN-I 0.082 ng/mL (0.000-0.060); UREA NITROGEN 36 mg/dL (7-18); eGFR NON AFRICAN AMERICAN 7 mL/min (90-120)
--- NOTE | 2017-01-08 08:54 | NUR ---
RECEIVED A CALL FROM A NURSE (FORGOT NAME) AT [facility]. THEY STATED THEY ARE FOLLOWING THE PATIENT AND ARE REQUESTING A CALL IF HER STATUS CHANGES TO INPATIENT OR SHE IS DISCHARGED. WILL CALL THEM AT [phone] PER THEIR REQUEST.
[2017-01-08 09:18] VITALS: BP 98/51
--- NOTE | 2017-01-08 09:38 | NUR ---
PT C/O CONSTANT NAUSEA. REQUESTING AND PROVIDED WITH PRN ZOFRAN. PT IS NOW NPO FOR CATH LATER TODAY. PT HAD LIGHT BREAKFAST AND VERBALIZED UNDERSTANDING OF NPO AND IS AWAITING CATH. NO FURTHER NEEDS AT THIS TIME. CL IN REACH, BED IN LOWEST, SIDE RAILS X2. WILL CPOC.
[2017-01-08 10:40] VITALS: Ht 175.3 cm; Wt 110.6 kg
[2017-01-08] MEDS ORDERED: LANOXIN125 MCG PO (11:30)
--- NOTE | 2017-01-08 11:33 | NUR ---
CHANGED PTS DIGOXIN ORDER TO CORRECT DAYS/DOSE. PT TAKES ONLY ON DIALYSIS DAYS. THURSDAY/THURSDAY/THURSDAY.
--- NOTE | 2017-01-08 12:27 | NUR ---
CATH CALLED TO PRE-OP PT. PRE-OP COMPLETED. PT READY AND WAITING TO BE TAKEN FOR CAREER SPECIALIST.
[2017-01-08 12:29] LABS: CKMB 0.8 U/L (0.0-3.6); CREATINE KINASE 45 UL (21-215)
[2017-01-08 12:35] VITALS: BP 85/42
[2017-01-08 12:40] LABS: TROPONIN-I 0.078 ng/mL (0.000-0.060)
--- NOTE | 2017-01-08 15:00 | NUR ---
PT BACK FROM DEPARTMENT CHAIRPERSON. VSS AND BEING MONITERED Q15MIN PER POLICY FOR POST PROCEDURE. DELORIS DRSG CDI NO S/S OF HEMATOMA OR BLEEDING NOTED. PERIPHERAL PULSES INTACT. PT IS TO LAY FLAT FOR 2 HOURS AND VERBALIZED UNDERSTANDING. CL IN REACH, BED IN LOWEST, SIDE RAILS X2. WILL CPOC.
[2017-01-08 16:27] VITALS: BP 130/72
--- NOTE | 2017-01-08 17:00 | NUR ---
D/C PTS L.FA PIV WITH CATHETER TIP FULLY INTACT. DISCHARGE TEACHING PROVIDED AND PAPERS SIGNED. PT VERBALIZED UNDERSTANDING AND DENIES ANY QUESTIONS OR CONCERNS. PT IS NOW ABLE TO SIT UP AND R.GROIN SITE IS CDI AND NO S/S OF BLEEDING OR HEMATOMA NOTED. PERIPHERAL PULSES INTACT AND VSS. PT WANTS TO EAT AND THEN WILL LEAVE WITH HER DAUGHTER TRANSPORTATION.
--- NOTE | 2017-01-08 18:35 | NUR ---
PT RIDE FINALLY ARRIVED. WHEELED PT OUT TO FRONT FOR TRANSPORTATION. NO FURTHER NEEDS.
--- NOTE | 2017-01-11 10:26 | OP ---
PATIENT NAME: GILLIAN ARRIAGA MEDICAL RECORD: [id number] :61 LOCATION:D.M2 D.2107 ADMISSION DATE:01/07/17 SURGEON: WARD TRINIDAD MD DATE OF OPERATION: 01/08/2017 PROCEDURE: Left heart catheterization, selective coronary angiography, right femoral artery approach. CATHETERS: A 5-Pashto sheath, 5/4 left and right Mirtha, 5/4 pig. The procedure was well tolerated. The patient returned to the steel, sheath removed. ExoSeal device placed. FINDINGS: Left ventriculography in the 30-degree PADGETT view shows normal wall motion, almost hyperdynamic ventricle. EF 60% or better. CORONARY ANATOMY: LEFT MAIN: Left main is free of disease. LAD: Free of disease in the diagonal system. CIRCUMFLEX: Multi views taken of the circumflex: This shows no more than 30% stenosis. RIGHT CORONARY ARTERY: Dominant, gives rise to PDA, free of disease. No evidence of restenosis. IMPRESSION: The patient has complete recovery of LV function, no evidence of significant atherosclerotic disease at this point. Symptoms are noncardiac. TRANSINT:[id number] Voice Confirmation ID: [id number] DOCUMENT ID: [id number] WARD TRINIDAD MD at 1026 CC: [id number] DICTATION DATE: 01/08/17 1450 ASSISTANT PORTFOLIO MANAGER: 01/09/17 0201 DIS IN 01/08/17 [facility] [address] [place] [address]
--- NOTE | 2017-01-11 10:26 | DS ---
PATIENT:GILLIAN ARRIAGA :61 MEDICAL RECORD: [id number] DISCHARGE SUMMARY ADMISSION DATE: 01/07/17 DISCHARGE DATE: 01/08/17 DISCHARGE DIAGNOSES: 1. Chest pain/acute ____ coronary syndrome. 2. Hypertension. 3. Chronic renal insufficiency. 4. Diabetes mellitus. 5. Orthostatic hypotension probably secondary to diabetic autonomic neuropathy. BRIEF HISTORY AND HOSPITAL COURSE: Admitted with symptoms consistent with acute coronary syndrome, recently had an intervention to the right, underwent catheterization. This showed no evidence of restenosis. No progression at all of [place] disease. LV function has recovered nicely from cardiomyopathy. Discharged home in good condition. MEDICATIONS: Same as preadmission. DIET: ADA diet. TRANSINT:[id number] Voice Confirmation ID: [id number] DOCUMENT ID: [id number] WARD TRINIDAD MD at 1026 CC: [id number] DICTATION DATE: 01/08/17 1452 RUG DESIGNER: 01/09/17 0216 DIS IN 01/08/17 [place] [address] [place] [address]
== END 2017-01-08 18:36 | disposition home health service (06) ==
LOC: OBSVTIME 11:28 → D.M2 11:28
PROVIDERS: ADMIT Internal Medicine Interventional Cardiology
DX: R07.89 Other chest pain (principal); I12.0 Hypertensive chronic kidney disease with stage 5 chronic kidney disease or end stage renal disease; E11.22 Type 2 diabetes mellitus with diabetic chronic kidney disease; N18.6 End stage renal disease; Z99.2 Dependence on renal dialysis; E11.43 Type 2 diabetes mellitus with diabetic autonomic (poly)neuropathy; I95.1 Orthostatic hypotension; J44.9 Chronic obstructive pulmonary disease, unspecified

== ENCOUNTER 2017-01-23 13:47 | Emergency (ER) | payer MEDICARE ==
[2017-01-08 10:40] VITALS: BMI 36.0
[2017-01-23 16:02] LABS: BASOPHILS 0.1 % (0-2); EOSINOPHILS 0.2 % (0-7); HEMATOCRIT 39.4 % (36.0-48.0); HEMOGLOBIN 12.1 g/dL (12-16); IMMATURE GRANULOCYTES 0.5 % (0-5); LYMPHOCYTES 9.7 % (15-50); MCH 25.3 pg (26.0-34.0); MCHC 30.7 g/dL (31.0-37.0); MCV 82.3 fL (80.0-100.0); MEAN PLATELET VOLUME 9.3 fL (7.4-10.4); MONOCYTES 4.5 % (2-11); PLATELET COUNT 191 10x3/uL (130-400); RBC 4.79 10x6/uL (4.00-5.40); RDW 19.7 % (11.5-14.5); WBC 14.1 10x3/uL (4.8-10.8)
[2017-01-23 16:50] LABS: ALBUMIN 3.2 g/dL (3.4-5.0); ANION GAP 11.7 mmol/L (8-16); BILIRUBIN - TOTAL 0.74 mg/dL (0.2-1.3); CALCIUM 7.9 mg/dL (8.5-10.1); CARBON DIOXIDE 31.4 mmol/L (21.0-32.0); CREATININE - SERUM 4.9 mg/dL (0.6-1.3); POTASSIUM - SERUM 3.1 mmol/L (3.5-5.1); PROTEIN - SERUM 7.6 g/dL (6.4-8.2)
== END 2017-01-23 18:04 | disposition home or self-care (01) ==
LOC: D.ER 13:47
PROVIDERS: Emergency Medicine
DX: E86.0 Dehydration (principal); E11.9 Type 2 diabetes mellitus without complications; I48.91 Unspecified atrial fibrillation

== ENCOUNTER 2018-06-13 12:59 | Emergency (ER) | payer MEDICARE ==
[~2018-06-13] VITALS: Ht 175.3 cm; Wt 103.9 kg
[2018-06-13 13:10] VITALS: Ht 175.3 cm; Wt 103.9 kg
[2018-06-13] MEDS ORDERED: MULTAQ400 MG PO (13:14)
[2018-06-13 14:03] LABS: BASOPHILS 0.2 % (0-2); EOSINOPHILS 0.7 % (0-7); HEMATOCRIT 37.7 % (36.0-48.0); HEMOGLOBIN 12.4 g/dL (12-16); IMMATURE GRANULOCYTES 0.1 % (0-5); LYMPHOCYTES 19.3 % (15-50); MCH 26.9 pg (26.0-34.0); MCHC 32.9 g/dL (31.0-37.0); MCV 81.8 fL (80.0-100.0); MEAN PLATELET VOLUME 9.8 fL (7.4-10.4); MONOCYTES 5.5 % (2-11); NEUTROPHILS 74.2 % (40-80); PLATELET COUNT 159 10x3/uL (130-400); RBC 4.61 10x6/uL (4.00-5.40); RDW 15.8 % (11.5-14.5); WBC 8.8 10x3/uL (4.8-10.8)
[2018-06-13 14:43] LABS: APTT 33.4 SECONDS (22.8-39.4); INR 1.32 (0.85-1.17); PROTIME 15.9 SECONDS (11.6-15.0)
[2018-06-13 14:56] LABS: ALBUMIN 3.3 g/dL (3.4-5.0); ALKALINE PHOSPHATASE 137 U/L (46-116); ALT (SGPT) 9 U/L (10-68); BILIRUBIN - TOTAL 0.36 mg/dL (0.2-1.3); CALC OSMOLALITY 307 mosm/kg (275-300); CALCIUM 7.4 mg/dL (8.5-10.1); CARBON DIOXIDE 18.7 mmol/L (21.0-32.0); CHLORIDE - SERUM 97 mmol/L (98-107); CREATININE - SERUM 9.6 mg/dL (0.6-1.3); GLUCOSE 152 mg/dL (74-106); POTASSIUM - SERUM 5.8 mmol/L (3.5-5.1); PROTEIN - SERUM 7.4 g/dL (6.4-8.2); SODIUM 142 mmol/L (136-145); UREA NITROGEN 73 mg/dL (7-18); eGFR NON AFRICAN AMERICAN 4 mL/min (90-120)
[2018-06-13 15:14] LABS: CREATINE KINASE 83 UL (21-215); MAGNESIUM - SERUM 1.9 mg/dL (1.8-2.4); TROPONIN-I 0.034 ng/mL (0.000-0.060)
[2018-06-13 17:14] VITALS: BP 151/84
== END 2018-06-13 17:15 | disposition home or self-care (01) ==
LOC: D.ER 12:59
PROVIDERS: Family Medicine
DX: S50.312A Abrasion of left elbow, initial encounter (principal); W18.30XA Fall on same level, unspecified, initial encounter; Y93.89 Activity, other specified; Y92.019 Unspecified place in single-family (private) house as the place of occurrence of the external cause; I25.10 Atherosclerotic heart disease of native coronary artery without angina pectoris; J44.9 Chronic obstructive pulmonary disease, unspecified; E11.9 Type 2 diabetes mellitus without complications; I12.0 Hypertensive chronic kidney disease with stage 5 chronic kidney disease or end stage renal disease; N18.6 End stage renal disease; Z99.2 Dependence on renal dialysis; E87.5 Hyperkalemia; M25.552 Pain in left hip; S46.811A Strain of other muscles, fascia and tendons at shoulder and upper arm level, right arm, initial encounter

== ENCOUNTER 2018-06-16 10:21 | Emergency (ER) | payer MEDICARE ==
[~2018-06-16] VITALS: Ht 175.3 cm; Wt 103.6 kg
[~2018-06-16 10:21] MED LIST changes: +MULTAQ400 MG PO
[2018-06-16 10:37] VITALS: Ht 175.3 cm; Wt 103.6 kg
[2018-06-16 12:21] LABS: BASOPHILS 0.2 % (0-2); EOSINOPHILS 0.7 % (0-7); HEMATOCRIT 41.6 % (36.0-48.0); HEMOGLOBIN 13.7 g/dL (12-16); IMMATURE GRANULOCYTES 0.2 % (0-5); LYMPHOCYTES 18.4 % (15-50); MCH 27.3 pg (26.0-34.0); MCHC 32.9 g/dL (31.0-37.0); MCV 82.9 fL (80.0-100.0); MEAN PLATELET VOLUME 9.5 fL (7.4-10.4); MONOCYTES 5.2 % (2-11); NEUTROPHILS 75.3 % (40-80); PLATELET COUNT 166 10x3/uL (130-400); RBC 5.02 10x6/uL (4.00-5.40); RDW 15.6 % (11.5-14.5); WBC 8.3 10x3/uL (4.8-10.8)
[2018-06-16 12:42] LABS: ALBUMIN 3.2 g/dL (3.4-5.0); ALKALINE PHOSPHATASE 135 U/L (46-116); ALT (SGPT) 9 U/L (10-68); BILIRUBIN - TOTAL 0.39 mg/dL (0.2-1.3); CALC OSMOLALITY 296 mosm/kg (275-300); CALCIUM 8.1 mg/dL (8.5-10.1); CARBON DIOXIDE 24.8 mmol/L (21.0-32.0); CHLORIDE - SERUM 95 mmol/L (98-107); CREATININE - SERUM 7.1 mg/dL (0.6-1.3); POTASSIUM - SERUM 3.8 mmol/L (3.5-5.1); PROTEIN - SERUM 8.1 g/dL (6.4-8.2); SODIUM 138 mmol/L (136-145); UREA NITROGEN 45 mg/dL (7-18); eGFR NON AFRICAN AMERICAN 6 mL/min (90-120)
[2018-06-16 12:48] LABS: GLUCOSE 254 mg/dL (74-106)
[2018-06-16 12:57] LABS: CKMB 1.5 U/L (0.0-3.6); CREATINE KINASE 53 UL (21-215); TROPONIN-I 0.041 ng/mL (0.000-0.060)
[2018-06-16 13:58] VITALS: BP 104/63
== END 2018-06-16 16:57 | disposition home or self-care (01) ==
LOC: D.ER 10:21
PROVIDERS: Family Medicine
DX: I95.9 Hypotension, unspecified (principal); I50.9 Heart failure, unspecified; Z99.2 Dependence on renal dialysis

== ENCOUNTER 2018-06-24 14:00 | Day surgery (SDC) | payer MEDICARE ==
[~2018-06-24] VITALS: Ht 175.3 cm; Wt 107.0 kg
[2018-06-24 15:03] LABS: HEMOGLOBIN 13.2 g/dL (12-16); LYMPHOCYTES 16.9 % (15-50); MCH 26.8 pg (26.0-34.0); MCHC 31.4 g/dL (31.0-37.0); MCV 85.4 fL (80.0-100.0); MEAN PLATELET VOLUME 9.5 fL (7.4-10.4); NEUTROPHILS 77.7 % (40-80); PLATELET COUNT 164 10x3/uL (130-400); RBC 4.92 10x6/uL (4.00-5.40); RDW 16.1 % (11.5-14.5); WBC 8.6 10x3/uL (4.8-10.8)
[2018-06-24 15:16] LABS: ANION GAP 16.6 mmol/L (8-16); CALCIUM 7.9 mg/dL (8.5-10.1); CARBON DIOXIDE 26.9 mmol/L (21.0-32.0); CREATININE - SERUM 8.6 mg/dL (0.6-1.3); POTASSIUM - SERUM 4.5 mmol/L (3.5-5.1)
[2018-06-24 15:21] LABS: APTT 32.5 SECONDS (22.8-39.4); INR 1.1 (0.85-1.17); PROTIME 13.7 SECONDS (11.6-15.0)
[2018-06-24] MEDS ORDERED: FLORINEF 0.1 M0.1 MG PO (16:05)
[2018-06-24 16:07] VITALS: BP 105/63; BMI 35.2
--- NOTE | 2018-06-24 16:40 | NUR ---
DR RIVAS CALLED AND GAVE ORDERS TO ADMIT PATIENT AND SCHEDULE FOR SURGERY WITH HIM TOMORROW AT 0700. Scott MONAE, EMAIL PRODUCTION SPECIALIST SCHEDULED PROCEDURE WITH SHANE IN SURGERY DEPARTMENT FOR SURGERY IN AM. ALSO TO NOTIFY NEPHROLOGY OF PATIENT'S ADMISSION DUE TO SHE MAY NEED DIALYSIS HERE TOMORROW,
--- NOTE | 2018-06-24 17:30 | NUR ---
CALLED DR TAPIA'S OFFICE AND REACHED THE ANSWERING SERVICE. MESSAGE AND NUMBER LEFT FOR CALL BACK. DR HARRISON AND YUDY CHAIDEZ, ANP RETAIL CLIENT SOLUTIONS CONSULTANT.
--- NOTE | 2018-06-24 18:30 | NUR ---
BAYRON BHAGAT CALLED AND INFORMED OF PATIENT'S ADMISSION PER DR RIVAS AND RELATED HE THOUGHT SHE MIGHT NEED DIALYSIS TOMORROW WHILE STILL IN THE HOSPITAL. BAYRON BHAGAT RELATED FOR THE NURSE TO CALL HER WITH THE ROOM NUMBER WHEN TRANSFERRED.
--- NOTE | 2018-06-24 20:11 | NUR ---
CALL PLACED TO DR RIVAS DUE TO INABILITY TO PLACE IV ACCESS WITH MULTIPLE ATTEMPTS MADE BY RN'S, JOSIAH CHAIDEZ GANG PLANK WORKMAN ATTEMPTING AT THIS TIME AND UNSUCCESSFUL AFTER 3 ATTEMPTS UNDER ULTRASOUND. ORDER FOR PO LEVAQUIN RECEIVED AND OK TO HOLD IV LEVAQUIN AND VANCOMYCIN
[2018-06-24 20:26] LABS: HCG SERUM NEGATIVE (NEGATIVE)
--- NOTE | 2018-06-24 20:36 | NUR ---
PATIENT TRANSFERRED TO ROOM 1204 BY WHEELCHAIR, NO ACTIVE COMPLAINTS
--- NOTE | 2018-06-24 21:01 | NUR ---
PATIENT ARRIVED TO UNIT VIA WHEELCHAIR AND PUT IN PUT AND ORIENTATED TO ROOM. CALL LIGHT IN REACH. BED IN LOWEST POSITION.
[2018-06-24 22:26] VITALS: BP 106/64
[2018-06-24 22:28] VITALS: BP 106/64; BMI 34.9
--- NOTE | 2018-06-24 23:51 | NUR ---
PATIENTS BLOOD SUGAR WAS CHECKED. BLOOD SUGAR WAS 255. CONTACTED DR MCKEON AND GAVE HIM THE RESULTS. HE INSTRUCTED TO START HER ON A LOWER SLIDING SCALE AND TO ORDER NOVALOG. Q6 FSBS.
--- NOTE | 2018-06-25 00:47 | NUR ---
PATIENT ASLEEP WITH EYES CLOSED. LAYING ON RIGHT SIDE WITH HOB AT 20 DEGREES. RESPIRATIONS EVEN. NO SIGNS OF DISTRESS. CALL LIGHT IN REACH.
--- NOTE | 2018-06-25 03:20 | NUR ---
PATIENT AWAKE AND LAYING IN BED WATCHING TV. PATIENT STATES THAT SHE WILL GET UP AND TAKE HER OWN SHOWER TO GET READY FOR SURGERY IN THE MORNING. PATIENTS 02 SATS ARE MUCH IMPROVED WITH 02 VIA NC AT 2L. PATIENT SATS AT 97. WCTM.
[2018-06-25 04:15] VITALS: BP 125/70
--- NOTE | 2018-06-25 05:49 | NUR ---
WIPED PATIENT DOWN WITH 2% CHLORHEXIDINE GLUCONATE CLOTH TO PREPARE FOR SURGERY THIS AM. PATIENT TOLERATED PROCEDURE.
--- NOTE | 2018-06-25 06:54 | NUR ---
PATIENT GETTING READY TO GO TO SURGERY VIA BED WITH SURGERY TRANSPORT PERSONNEL.
--- NOTE | 2018-06-25 09:00 | NUR ---
PT BACK FROM SURGERY THIS AM, RESPIRATIONS EVEN AND UNLABORED, NO S/S OF DISTRESS NOTED. O2 AT 2L. VOICES THAT SHE WANTS FOOD, FOOD CALLED AND DELIVERED PER REQUEST. DENIES FURTHER NEEDS. DRESSING TO RIGHT BUTTOCKS, CDI. BED LOW AND LOCKED, SR UP X2, CL IN EASY REACH.
--- NOTE | 2018-06-25 11:00 | NUR ---
OFF UNIT VIA BED TO DIALYSIS. DENIES NEEDS.
--- NOTE | 2018-06-25 11:00 | NUR ---
PT LEFT FOR DIALYSIS THIS AM, WILL HOLD AFTERNOON MEDS UNTIL RETURN.
[2018-06-25 11:05] VITALS: Ht 175.3 cm; Wt 107.0 kg
--- NOTE | 2018-06-25 14:00 | NUR ---
PT RETURNED FROM DIALYSIS, DENIES NEEDS AT THIS TIME. CL IN EASY REACH.
[2018-06-25 16:43] VITALS: BP 97/51
[2018-06-25 17:15] LABS: BASOPHILS 0.3 % (0-2); EOSINOPHILS 0.8 % (0-7); HEMATOCRIT 36.9 % (36.0-48.0); HEMOGLOBIN 11.7 g/dL (12-16); IMMATURE GRANULOCYTES 0.3 % (0-5); LYMPHOCYTES 14.7 % (15-50); MCH 26.6 pg (26.0-34.0); MCHC 31.7 g/dL (31.0-37.0); MCV 83.9 fL (80.0-100.0); MEAN PLATELET VOLUME 9.5 fL (7.4-10.4); MONOCYTES 4.3 % (2-11); NEUTROPHILS 79.6 % (40-80); PLATELET COUNT 155 10x3/uL (130-400); RDW 15.8 % (11.5-14.5); WBC 7.4 10x3/uL (4.8-10.8)
[2018-06-25 17:37] LABS: ANION GAP 15.8 mmol/L (8-16); CALCIUM 7.7 mg/dL (8.5-10.1); CARBON DIOXIDE 28.4 mmol/L (21.0-32.0); CREATININE - SERUM 7.5 mg/dL (0.6-1.3); POTASSIUM - SERUM 4.2 mmol/L (3.5-5.1)
--- NOTE | 2018-06-25 20:30 | NUR ---
THE PATIENT APPEARED TO BE SLEEPING BUT WASILY WOKE WHEN STAFF ENTERED HER ROOM. BED IN THE LOW POSITION WITH SIDERAILS X2 AND CALL LIGHT WITHIN REACH. PATIENT EDUCATED ON USE OF A CALL LIGHT AND DEMONSTRATES UNDERSTANDING VIA TEACHBACK METHOD. THE PATIENT HAS NO QUESTIONS OR CONCERNS AT THIS TIME.
[2018-06-25 20:36] VITALS: BP 99/72
[2018-06-26] VITALS: BP 90/60
[2018-06-26 03:00] VITALS: BP 88/50
--- NOTE | 2018-06-26 03:17 | NUR ---
THE PATIENT APPEARS TO BE SLEEPING. CALL LIGHT WITHIN REACH WITH SIDERAILS X2. BED IN THE LOW POSITION.
[2018-06-26 06:12] LABS: BASOPHILS 0.2 % (0-2); HEMATOCRIT 38.9 % (36.0-48.0); HEMOGLOBIN 12.3 g/dL (12-16); IMMATURE GRANULOCYTES 0.5 % (0-5); LYMPHOCYTES 23.5 % (15-50); MCH 26.9 pg (26.0-34.0); MCHC 31.6 g/dL (31.0-37.0); MCV 85.1 fL (80.0-100.0); MEAN PLATELET VOLUME 9.8 fL (7.4-10.4); MONOCYTES 6.7 % (2-11); NEUTROPHILS 68.1 % (40-80); PLATELET COUNT 162 10x3/uL (130-400); RBC 4.57 10x6/uL (4.00-5.40); RDW 16.1 % (11.5-14.5); WBC 8.7 10x3/uL (4.8-10.8)
[2018-06-26 06:37] LABS: ANION GAP 19.4 mmol/L (8-16); CALCIUM 7.6 mg/dL (8.5-10.1); CARBON DIOXIDE 25.2 mmol/L (21.0-32.0); CREATININE - SERUM 8.7 mg/dL (0.6-1.3); PHOSPHOROUS 6.2 mg/dL (2.5-4.9); POTASSIUM - SERUM 4.6 mmol/L (3.5-5.1)
--- NOTE | 2018-06-26 07:30 | NUR ---
PT RESTING IN BED EYES OPEN. C/O PAIN 01/22. PT ALERT AND ORIENTED. NO S/S OF ACUTE DISTRESS NOTED. 2L O2, NC. IV TO LEFT FOREARM, SITE PATENT WITHOUT REDNESS OR SWELLING, SL. FISTULA TO RIGHT ARM. PACEMAKER TO LEFT CHEST. PT DENIES ANYTHING FURTHER AT THIS TIME. CALL LIGHT IN REACH. WILL CONTINUE TO MONITOR.
--- NOTE | 2018-06-26 07:57 | NUR ---
PT C/O PAIN, 01/22. GAVE NORCO 10 FOR PAIN. NO S/S OF ACUTE DISTRESS NOTED. PT DENIES ANYTHING FURTHER AT THIS TIME. CALL LIGHT IN REACH. WILL CONTINUE TO MONITOR.
[2018-06-26 08:25] VITALS: BP 89/54
[2018-06-26] MEDS ORDERED: LEVAQUIN250 MG PO (11:09)
--- NOTE | 2018-06-26 11:45 | NUR ---
PT DISCHARGED HOME. WENT OVER DISCHARGE INSTRUCTIONS WITH PT, PT ACKNOWLEDGED INSTRUCTIONS. PT DICHARGED WITH FAMILY AD VIVIANA. PT DENIES ANY CONCERNS. IV DISCONTINUED, CATHETER TIP INTACT. PT DENIES ANYTHING FURTHER.
[2018-06-26 12:02] VITALS: BP 93/36
--- NOTE | 2018-06-26 17:01 | OP ---
PATIENT NAME: GILLIAN PETIT MEDICAL RECORD: [id number] :61 LOCATION:D.OPS ADMISSION DATE: SURGEON: KAYLYNN RIVAS MD DATE OF OPERATION: 06/25/2018 PREOPERATIVE DIAGNOSIS: Pilonidal abscess. POSTOPERATIVE DIAGNOSIS: Pilonidal abscess. OPERATION PERFORMED: Excisional debridement with unroofing of abscess and drainage. SURGEON: Kaylynn Rivas MD ANESTHESIA: General endotracheal per PROGRAM EVALUATOR. REFERRING PHYSICIAN: Kalia Wong MD PREOPERATIVE NOTE: Ms. Petit is an obese 52-year-old hypertensive, diabetic, -E[place]ian female, on chronic hemodialysis with a right upper extremity HeRO graft. She has a history of recurring boils and staphylococcal infections. She has presented to me in my office with an abscess in the left buttock at the top of the cleft and she appears to have a scar in that area from what I would think was prior pilonidal disease or surgery, although she does not recall that. This lesion is about 4-5 cm of induration with areas of pointing pustular formation and may represent a staphylococcal abscess, although it needs to be treated for an elective pilonidal. DESCRIPTION OF PROCEDURE: Under anesthesia in prone position, she was prepped and draped in sterile manner. An elliptical incision was made to remove the pustular formations and unroof the underlying abscess. The purulent material was nonmalodorous. It was cultured and a stat Gram stain requested, which is pending as I dictate. The wound was irrigated and debrided, and then infiltrated with 0.25% Marcaine with epinephrine and packed with gauze wet with gentamicin and saline solution. Further sterile dressings were applied and she was then awakened and taken to the recovery room in stable condition. Blood loss was nil. Sponges, instruments and needles were accounted for. No drain was used other than the packing and the surgical specimen consisted of the ellipse of skin and subcutaneous tissues from the roof of the abscess. This lesion may possibly even represent a perirectal abscess associated with a [id number]. I think the results of the culture will be very telling. PLAN: The patient will have dialysis here today and we will prepare for discharge to home tomorrow. She has a home health referral and I will plan for her to do twice a day Hibiclens hot Sitz or showers and to wash the wound at those times with Hibiclens and then keep it covered with a clean, dry gauze. For now, we will continue her on Levaquin orally and vancomycin IV at dialysis. TRANSINT:[id number] Voice Confirmation ID: [id number] DOCUMENT ID: [id number] OPERATIVE REPORT [id number] GILLIAN PETIT JAMES MD at 1701 CC: KALIA WONG MD and MELLO NARAYANAN [id number] DICTATION DATE: 06/25/1856 TOWEL CABINET REPAIRER: 06/25/18 0940 [facility] [place] 06/26/18 [address] [place] [address]
== END 2018-06-26 13:05 | disposition home or self-care (01) ==
LOC: D.OPS 14:00 → D.M3 20:38 → D.OPS 06-26 13:05
PROVIDERS: Anesthesiology; Internal Medicine Nephrology; Surgery
DX: L05.01 Pilonidal cyst with abscess (principal); E11.22 Type 2 diabetes mellitus with diabetic chronic kidney disease; I12.0 Hypertensive chronic kidney disease with stage 5 chronic kidney disease or end stage renal disease; D63.1 Anemia in chronic kidney disease; N18.6 End stage renal disease; Z99.2 Dependence on renal dialysis; I25.10 Atherosclerotic heart disease of native coronary artery without angina pectoris; J44.9 Chronic obstructive pulmonary disease, unspecified; I48.91 Unspecified atrial fibrillation; I95.89 Other hypotension; E83.39 Other disorders of phosphorus metabolism; G47.30 Sleep apnea, unspecified; I25.2 Old myocardial infarction; M19.90 Unspecified osteoarthritis, unspecified site; F32.9 Major depressive disorder, single episode, unspecified; Z79.891 Long term (current) use of opiate analgesic; Z79.01 Long term (current) use of anticoagulants; Z79.02 Long term (current) use of antithrombotics/antiplatelets; Z79.4 Long term (current) use of insulin; Z01.812 Encounter for preprocedural laboratory examination; Z87.891 Personal history of nicotine dependence; Z99.81 Dependence on supplemental oxygen; Z88.5 Allergy status to narcotic agent; Z88.0 Allergy status to penicillin; Z88.8 Allergy status to other drugs, medicaments and biological substances; Z88.1 Allergy status to other antibiotic agents; Z91.040 Latex allergy status

== ENCOUNTER → 2018-11-11 08:36 | Outpatient (CLI) | payer MEDICARE | END | disposition home or self-care (01) | LOC: D.CN 08:36 | DX: G56.90 Unspecified mononeuropathy of unspecified upper limb (principal) ==

== ENCOUNTER → 2018-11-16 08:39 | Outpatient (CLI) | payer MEDICARE ==
[2018-06-25 11:05] VITALS: BMI 34.8
[~2018-11-16 08:39] MED LIST changes: +FLORINEF 0.1 M0.1 MG PO; +LEVAQUIN250 MG PO
== END | disposition home or self-care (01) ==
LOC: D.MRI 08:39
PROVIDERS: ATTEND Nurse Practitioner Family
DX: M25.562 Pain in left knee (principal)

== ENCOUNTER 2019-01-13 06:17 | Day surgery (SDC) | payer MEDICARE ==
[~2019-01-13] VITALS: Ht 175.3 cm; Wt 103.0 kg
[~2019-01-13 06:17] MED LIST changes: +LEVEMIR FL100 UNIT/1 SC
[2019-01-13 06:44] LABS: HEMATOCRIT 45.1 % (36.0-48.0); HEMOGLOBIN 14.6 g/dL (12-16); MCHC 32.4 g/dL (31.0-37.0); MCV 86.6 fL (80.0-100.0); MEAN PLATELET VOLUME 10.3 fL (7.4-10.4); RBC 5.21 10x6/uL (4.00-5.40); RDW 16.2 % (11.5-14.5); WBC 8.7 10x3/uL (4.8-10.8)
[2019-01-13 07:02] LABS: ANION GAP 17.6 mmol/L (8-16); CALCIUM 9.3 mg/dL (8.5-10.1); CARBON DIOXIDE 27.4 mmol/L (21.0-32.0); CREATININE - SERUM 8.6 mg/dL (0.6-1.3)
--- NOTE | 2019-01-13 07:41 | NUR ---
0740 PT IV NOT RUNNING PROPERLY. IV DC'D. CATHETER INTACT. BANDAGE APPLIED.
[2019-01-13 07:55] LABS: APTT 27.7 SECONDS (22.8-39.4); INR 0.98 (0.85-1.17); PROTIME 12.5 SECONDS (11.6-15.0)
[2019-01-13 07:58] VITALS: BP 88/60; Ht 175.3 cm; Wt 103.0 kg
[2019-01-13] MEDS ORDERED: ATARAX 25 MG TA25 MG PO (08:12)
[2019-01-13] MEDS ORDERED: CREON DR 24,001 EACH PO (08:13)
[2019-01-13] MEDS ORDERED: CRESTOR10 MG PO (08:14)
[2019-01-13] MEDS ORDERED: NEURONTIN 300300 MG (08:15)
[2019-01-13] MEDS ORDERED: BUPROPION XL150 MG PO (08:16)
[2019-01-13] MEDS ORDERED: XANAX0.5 MG (08:17)
[2019-01-13] MEDS ORDERED: HYDROCODON-ACE1 EA10 PO (09:40)
--- NOTE | 2019-01-13 11:21 | OP ---
PATIENT NAME: GILLIAN ARRIAGA MEDICAL RECORD: [id number] :61 LOCATION:D.OPS ADMISSION DATE: SURGEON: KAYLYNN ANDERSON MD DATE OF OPERATION: 01/13/2019 PREOPERATIVE DIAGNOSIS: Lateral meniscus tear of the left knee. PREOPERATIVE DIAGNOSES: 1. Lateral meniscus tear of the left knee. 2. 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 PROCEDURES: 1. Arthroscopic partial lateral meniscectomy -- subtotal. 2. Arthroscopic chondroplasty of the medial femoral condyle separate compartment. SURGEON: Kaylynn Anderson MD JAVA SQL DEVELOPER: TELMA Snow ANESTHESIA: General. INTRAOPERATIVE COMPLICATIONS: None. SUMMARY OF PATHOLOGIC FINDINGS: Unfortunately, the patient had a large area as described above with articular flaps on the medial femoral condyle. These were taken back and smoothened for good transition. The lateral horn of the meniscus had a very complex tear emanating from just lateral to the root across the popliteal recess to approximately the 4 o'clock position. This resulted in near subtotal lateral meniscectomy. The patient did not have substantial amount of chondromalacia on the lateral side, grade II at best. OPERATIVE SUMMARY IN DETAIL: After obtaining the appropriate preoperative orthopedic surgery consent as well as anesthetic consultation, evaluation and clearance, the patient was brought to the operating room and placed on the operating table in supine position. After adequate general laryngeal mask airway was administered, the tourniquet was placed on the proximal aspect of the left lower extremity. Left lower extremity was then prepped and draped in routine sterile fashion. The leg was elevated and exsanguinated. Tourniquet was inflated to 350 mmHg. At this point, the appropriate timeout was taken, identifiers were utilized and agreed upon by all in the operative suite. Inferolateral portal was established followed by superomedial portal and inferomedial portal. Diagnostic arthroscopy did reveal the above findings. Attention was first turned to the medial femoral condyle. Using the arthroscopic resector, the flaps were taken down very gently. Care was taken to avoid any further damage to the cartilage and making a smooth transition zone about the area as described above. Next, the knee was placed in the [id number]-np-txxy position and a combination of meniscotomes as well as arthroscopic resector were utilized to debride the lateral meniscus back to stable meniscal elements. Essentially, the entire lateral meniscus from just lateral to the posterior medial corner to approximately the 4 o'clock position were taken down. Having completed this, the knee was insufflated with 30 cc of 0.25% Marcaine with epinephrine and 40 mg of Depo-Medrol. Arthroscopy portals were closed in routine interrupted fashion using 4-0 Prolene by TELMA Snow. OPERATIVE REPORT [id number] GILLIAN ARRIAGA Sterile dressings were applied. Tourniquet was deflated. The patient was awakened and taken to recovery room in stable condition. All final needle and sponge counts were correct. TRANSINT:[id number] Voice Confirmation ID: [id number] DOCUMENT ID: [id number] JUSTIN PAPPAS, KAYLYNN ZARATE at 1121 CC: [id number] DICTATION DATE: 01/13/19 1025 SECURITY PROFESSIONAL: 01/13/19 1038 [facility] [address] [id number]
== END 2019-01-13 11:28 | disposition home or self-care (01) ==
LOC: D.OPS 06:17
PROVIDERS: Anesthesiology; ATTEND Orthopaedic Surgery
DX: S83.272A Complex tear of lateral meniscus, current injury, left knee, initial encounter (principal); M94.262 Chondromalacia, left knee; Z01.812 Encounter for preprocedural laboratory examination

== ENCOUNTER → 2019-08-22 14:23 | Outpatient (CLI) | payer MEDICARE ==
[~2019-08-22 14:23] MED LIST changes: +ATARAX 25 MG TA25 MG PO; +BUPROPION XL150 MG PO; +CREON DR 24,001 EACH PO; +HYDROCODON-ACE1 EA10 PO; +NEURONTIN 300300 MG; +XANAX0.5 MG
--- NOTE | 2019-08-22 15:11 | NUR ---
TIME OUT PERFORMED @ [address] CARR & CHAYA VEGA RTR. PATIENT, , & PROCEDURE VERIFIED.
== END | disposition home or self-care (01) ==
LOC: D.RAD 14:23
PROVIDERS: ATTEND Clinical Nurse Specialist Family Health
DX: M25.562 Pain in left knee (principal)

== ENCOUNTER → 2019-08-25 10:22 | Outpatient (CLI) | payer MEDICARE | END | disposition home or self-care (01) | LOC: D.MRI 10:22 | PROVIDERS: ATTEND Clinical Nurse Specialist Family Health | DX: M25.562 Pain in left knee (principal) ==

== ENCOUNTER 2019-12-18 16:33 | Inpatient (IN) | payer MEDICARE ==
[~2019-12-18] VITALS: Ht 175.3 cm; Wt 104.1 kg
--- NOTE | ~2019-12-18 | CN ---
PATIENT NAME:GILLIAN ARRIAGA MEDICAL RECORD: [id number] : 61 LOCATION:D. D.2121 ADMIT DATE: 12/18/19 ACCOUNT: [id number] CONSULTING PHYSICIAN: WARD TRINIDAD MD REFERRING PHYSICIAN: KALIA TAPIA MD DATE OF CONSULTATION: 12/19/2019 HISTORY OF PRESENT ILLNESS: A 54-year-old patient known to me with history of sick sinus syndrome, status post pacemaker, has episodes of intermittent atrial fibrillation on a class III antiarrhythmic. She remains on DOAC for CVA prophylaxis, admitted with near syncope and volume overload. Complicating factor, she has longstanding diabetes with subsequent diabetic and autonomic neuropathy with frequent episodes of orthostasis. We are asked to see her concerning her cardiovascular status. PAST MEDICAL HISTORY: Includes: 1. History of chronic renal insufficiency, on dialysis. 2. Sick sinus syndrome, status post pacemaker placement. 3. Autonomic neuropathy. 4. Atrial fibrillation. 5. Dyslipidemia. 6. Diabetes mellitus. MEDICATIONS: Include NovoLog per scale, Levemir 32 units at bedtime, Florinef 0.1 mg p.o. daily, Protonix 40 every day, Veltassa 8.4 grams daily, Renvela 800 mg p.o. t.i.d. with meals, Neurontin 600 mg p.o. b.i.d., Xanax 1 mg p.o. b.i.d., Wellbutrin 150 every day, Neurontin 300 mg every day, Crestor 10 every day, Multaq 400 b.i.d., Eliquis 5 b.i.d. ALLERGIES: PENICILLIN, KEFLEX, LYRICA, JANUVIA. REVIEW OF SYSTEMS: The patient reports easy bruising but reports no swollen glands. The patient reports no fever, no night sweats, no significant weight gain, no significant weight loss. No significant exercise tolerance. The patient reports no dry eyes, no irritation, no vision change. Patient reports no difficulty hearing and no ear pain. Patient reports no frequent nose bleeds or nose and sinus problems. Patient reports on arm pain on exertion. No shortness of breath while lying down. No history of heart murmur. Patient reports no cough, no wheezing or coughing up blood. Patient reports no abdominal pain, no vomiting. Normal appetite. No diarrhea and not vomiting blood. No nausea and no constipation. Patient reports no incontinence. No difficulty urinating. No hematuria. No increased frequency. Patient reports no muscle aches. No weakness, no arthralgias, no back pain. No swelling of the extremities. Patient reports no abnormal mole, no jaundice, no rashes. Reports no loss of consciousness. No weakness and no numbness. No seizures, dizziness, or headaches. The patient reports no depression, no sleep disturbance, feeling safe in a relationship and no alcohol abuse. Patient reports on fatigue. Reports no runny nose or sinus pressure. No itching, no hives, and no frequent sneezing. PHYSICAL EXAMINATION: GENERAL: Pleasant, in no acute distress, appears stated age. HEENT: Normocephalic, atraumatic. NECK: No JVD or bruit. HEART: Regular. II/ systolic ejection murmur. CONSULT REPORT [id number] GILLIAN ARRIAGA LUNGS: Good air excursion. ABDOMEN: Soft, nontender. EXTREMITIES: Pulses 2+. No edema. IMPRESSION: Near syncope. Does have intermittent atrial fibrillation, although this is not exacerbating recent episode. Agree with addition of ProAmatine to her underlying Florinef. Agree with Dr. Tapia. This will continue to be a problem long-term. Further recommendations based on clinical course. TRANSINT:[id number] Voice Confirmation ID: [id number] DOCUMENT ID: [id number] WARD TRINIDDA MD CC: [id number] DICTATION DATE: 12/19/1945 SERVICES PROGRAM MANAGER: 12/19/[address] [facility] [address] [place] [address]
[2019-12-18 17:25] LABS: BASOPHILS 0.2 % (0-2); EOSINOPHILS 0.5 % (0-7); HEMATOCRIT 49.6 % (36.0-48.0); IMMATURE GRANULOCYTES 0.3 % (0-5); LYMPHOCYTES 18.2 % (15-50); MCH 29.3 pg (26.0-34.0); MCHC 32.3 g/dL (31.0-37.0); MCV 90.8 fL (80.0-100.0); MEAN PLATELET VOLUME 10.7 fL (7.4-10.4); MONOCYTES 6.4 % (2-11); NEUTROPHILS 74.4 % (40-80); PLATELET COUNT 155 10x3/uL (130-400); RBC 5.46 10x6/uL (4.00-5.40); WBC 8.6 10x3/uL (4.8-10.8)
[2019-12-18 17:31] LABS: APTT 36.4 SECONDS (22.8-39.4); INR 1.13 (0.85-1.17); PROTIME 14.5 SECONDS (11.6-15.0)
[2019-12-18 17:36] LABS: CALC OSMOLALITY 284 mosm/kg (275-300); CALCIUM 7.9 mg/dL (8.5-10.1); CARBON DIOXIDE 24.8 mmol/L (21.0-32.0); CHLORIDE - SERUM 92 mmol/L (98-107); POTASSIUM - SERUM 5.2 mmol/L (3.5-5.1); SODIUM 129 mmol/L (136-145); UREA NITROGEN 46 mg/dL (7-18); eGFR NON AFRICAN AMERICAN 4 mL/min (90-120)
[2019-12-18 17:38] LABS: GLUCOSE 347 mg/dL (74-106)
[2019-12-18 17:50] LABS: ALBUMIN 3.1 g/dL (3.4-5.0); ALKALINE PHOSPHATASE 176 U/L (30-120); ALT (SGPT) 8 U/L (10-68); BILIRUBIN - TOTAL 0.67 mg/dL (0.2-1.3); CKMB 1.5 U/L (0.0-3.6); CREATINE KINASE 69 UL (21-215); PRO BNP 32222 pg/mL (0-125); PROTEIN - SERUM 7.3 g/dL (6.4-8.2); TROPONIN-I 0.027 ng/mL (0.000-0.060)
[2019-12-18 19:30] VITALS: BP 82/45
[2019-12-18 22:30] VITALS: BP 99/52
--- NOTE | 2019-12-18 22:31 | NUR ---
PT ARRIVED VIA W/C FROM ER. NO DISTRESS NOTED.
[2019-12-18] MEDS ORDERED: NEURONTIN600 MG PO (23:05)
[2019-12-18 23:07] VITALS: BP 95/60; BMI 33.7
[2019-12-18] MEDS ORDERED: ELIQUIS5 MG PO (23:07)
[2019-12-18] MEDS ORDERED: XANAX1 MG PO (23:21)
[2019-12-18] MEDS ORDERED: MIDODRINE HCL10 MG PO (23:23)
[2019-12-18] MEDS ORDERED: VELTASSA8.4 GM PO (23:23)
[2019-12-18] MEDS ORDERED: KENALOG IN ORABA5 GM TOPICAL (23:24)
[2019-12-18] MEDS ORDERED: VENTOLIN HFA [SP8 GM INH (23:25)
[2019-12-18] MEDS ORDERED: ZOFRAN ODT4 MG/UDTAB PO (23:25)
[2019-12-18] MEDS ORDERED: zebeta (23:26)
--- NOTE | 2019-12-19 00:15 | NUR ---
ADMISSION ASSESSMENT, HISTORY AND HOME MED LIST COMPLETED. IV TO LFA SL. R ARM HERO GRAFT NOTED WITH THRILL NOTED. LUNGS WITH SCATTERED INSP WHEEZES UPPER LOBES, DIMINISHED LOWER LOBES. R FOOT WITH FISSURES NOTED TO HEEL AND INBETWEEN LAST 2 TOES WHICH PT STATES ARE QUITE PAINFUL. PM FSBS 259. 10 UNITS REG INSULIN GIVEN SUB-Q TO ABD PER S/S. PM MEDS GIVEN. CALL PLACED TO RENAL SERVICES AT 0010 HRS REGARDING PAIN MEDS. AWAITING RETURN CALL. SR UP X1, CALL LIGHT WITHIN REACH. UCAF WITH PACED BEATS PER CM HR 108. VSS.
--- NOTE | 2019-12-19 00:48 | NUR ---
RENAL SERVICES REPAGED.
--- NOTE | 2019-12-19 00:52 | NUR ---
PT RESTING WITH EYES CLOSED. RESP EVEN AND REGULAR. CALL LIGHT WITHIN REACH.
--- NOTE | 2019-12-19 00:57 | NUR ---
Sue CHAIDEZ APRN RETURNS CALL. INFORMED OF PT'S REQUEST FOR HER NORCO. NEW ORDERS RECEIVED AND NOTED.
--- NOTE | 2019-12-19 03:00 | NUR ---
PT RESTING WITH EYES CLOSED. RESP EVEN AND REGULAR. CALL LIGHT WITHIN REACH.
--- NOTE | 2019-12-19 04:19 | NUR ---
PT RESTING WITH EYES CLOSED. RESP EVEN AND REGULAR. CALL LIGHT WITHIN REACH.
[2019-12-19 05:00] VITALS: BP 102/73
--- NOTE | 2019-12-19 05:52 | NUR ---
VSS THROUGHOUT NIGHT. CAF/UCAF PER CM. PT RESTED WELL AFTER XANAX ADMINISTRATION. NEEDS MET; WILL CONTINUE TO MONITOR.
[2019-12-19 08:30] VITALS: BP 94/51
[2019-12-19 09:22] LABS: APTT 30.1 SECONDS (22.8-39.4); INR 1.11 (0.85-1.17); PROTIME 14.3 SECONDS (11.6-15.0)
--- NOTE | 2019-12-19 09:41 | HP ---
PATIENT: GILLIAN ARRIAGA MEDICAL RECORD: [id number] ACCOUNT: [id number] LOCATION:[facility].2121 : 61 ADMISSION DATE: 12/18/19 PCP: OLYA BHATIA [facility] HISTORY AND PHYSICAL EXAMINATION RENAL ADMIT HISTORY OF PRESENT ILLNESS: This is a 54-year-old female that was out eating and became short of breath. She is on dialysis Thursday, Thursday, Thursday, but has a severe problem with fluid restriction and diet. She has severe congestive heart failure and hyperkalemia. She had had the shortness of breath approximately for about 2 hours. She is not reporting any shortness of breath and apparently may be possibly being discharged to home from the Emergency Room if they cannot talk her into staying. I am dictating as I suspect she is going to return back to the hospital. All other review of systems are negative. Dizziness improved. However, unfortunately, she did have to require 1 liter of normal saline, which will have to be removed tomorrow. She is near anuric. REVIEW OF SYSTEMS: All other review of systems are negative. No chest pain, nausea, or vomiting. ALLERGIES: PENICILLIN, LATEX, ADHESIVE, CEPHALEXIN, LYRICA, AND JANUVIA. HOME MEDICATIONS: Sultana, which she had received from Dr. Marmolejo. Albuterol, Renvela, Eliquis, Sensipar, Plavix, Advair, Protonix, Multaq, Florinef, Levemir, Atarax, Creon, Crestor, Neurontin, Wellbutrin, and Xanax, which I believe she receives from another physician as well. PAST MEDICAL HISTORY: 1. End-stage renal disease with difficulty with fluid restriction. 2. Congestive heart failure, pacemaker, angioplasty, stents, atrial fibrillation, poor ejection fraction and chronic hypotension requiring Florinef. 3. COPD on home O2, CO2 retainer. 4. Fistula surgery in her right arm. 5. Depression. 6. Arthritis with chronic back pain and received injections in her back, which is likely where she receives her pain medications. 7. ESRD due to the above. 8. Diabetes type 2. 9. Deconditioned due to all the above. 10. Previous hypertension. FAMILY HISTORY: Parents had hypertension. Sibling with hypertension. Children with hypertension. SOCIAL HISTORY: No current tobacco, alcohol, or drug use other than prescriptions. PHYSICAL EXAMINATION: VITAL SIGNS: Temperature is 98.8, heart rate 119, atrial fib, 94/59, pulse ox 94%, respiratory rate of 20. Resting, NAD. GENERAL: No obvious distress. HEENT: Grossly clear. NECK: No thyromegaly. CHEST: Regular rate and rhythm. Decreased breath sounds at the bases. HISTORY AND PHYSICAL [id number] GILLIAN ARRIAGA ABDOMEN: Nontender with no distention. Positive lower extremity edema. Pacemaker is clean. LABORATORY DATA: Potassium of 5.2, sodium 129, delusional due to increased fluid intake generally on Mondays has over 3-4 liters. CO2 at 24.8, BUN 46, creatinine of 10, glucose of 347, CK-MB of 1.5. CK of 69. ProBNP is 32,222, albumin of 3.1. White count 8600, H and H 16/49.6, and platelet count 155. ASSESSMENT AND PLAN: 1. End-stage renal disease, dialysis would certainly help this nice lady. She has multiple comorbid conditions and struggles with fluid restriction. 2. Atrial fibrillation with rapid ventricular response. Noted, her CK, CK-MB, and troponin. No current chest pain. 3. Pulmonary edema. She did receive fluid in the Emergency Room. She is on Florinef for hypotension. Would prefer that she does not receive fluid as we have to remove this. 4. Diabetes. She is hyperglycemic after going out to eat celebrating 12/17/2019. I did not see that she is on an insulin sliding scale and when around in the dialysis unit will discuss. I believe she has had a previous primary MD and have been trying to get her back with a primary MD as well as asking her for glucose logs at home. 5. Hyperphosphatemia. I did not see a phosphate binder in her medication list and we will discuss on monthly rounds. She is also seen weekly by the nurse practitioner as we are constantly discussing her potassium and phosphorus and fluid intake. This is a constant struggle. 6. Anxiety and depression. Certainly with all her above conditions have not expected her to survive this along with her dietary indiscretion, severe heart conditions, end-stage renal disease, and unable to curtail her dietary intake. 7. Hyponatremia, dilutional due to fluid intake. PLAN: We will dialyze her if she returns if we have staff available. I have cautioned her. Plan, please see orders. TRANSINT:[id number] Voice Confirmation ID: [id number] DOCUMENT ID: [id number] KALIA TAPIA MD at 0941 CC: [id number] DICTATION DATE: 12/18/191806 FLIGHT SECURITY SPECIALIST: 12/18/19 2241 ADM IN [facility] [address] [place] [address]
[2019-12-19 09:46] LABS: ALBUMIN 2.9 g/dL (3.4-5.0); ALKALINE PHOSPHATASE 159 U/L (30-120); ALT (SGPT) 9 U/L (10-68); BILIRUBIN - TOTAL 0.49 mg/dL (0.2-1.3); CALCIUM 7.5 mg/dL (8.5-10.1); CARBON DIOXIDE 23.9 mmol/L (21.0-32.0); CHLORIDE - SERUM 96 mmol/L (98-107); CKMB 1.3 U/L (0.0-3.6); CREATINE KINASE 36 UL (21-215); CREATININE - SERUM 10.8 mg/dL (0.6-1.3); POTASSIUM - SERUM 5.3 mmol/L (3.5-5.1); PROTEIN - SERUM 6.2 g/dL (6.4-8.2); SODIUM 134 mmol/L (136-145); UREA NITROGEN 52 mg/dL (7-18); eGFR NON AFRICAN AMERICAN 4 mL/min (90-120)
[2019-12-19 09:50] LABS: CALC OSMOLALITY 280 mosm/kg (275-300); GLUCOSE 80 mg/dL (74-106)
[2019-12-19 10:12] LABS: PRO BNP 38526 pg/mL (0-125)
[2019-12-19 14:17] VITALS: Ht 175.3 cm; Wt 104.1 kg
[2019-12-19 16:50] VITALS: BP 82/54
--- NOTE | 2019-12-19 19:30 | NUR ---
REPORT RECIEVED AND INITIAL ROUNDS COMPLETED. PT RESTING. NO DISTRESS. CPOC. SEE ASSESSMENT.
[2019-12-19 20:00] VITALS: BP 120/71
--- NOTE | 2019-12-19 21:22 | NUR ---
BEDTIME MEDS GIVEN.
[2019-12-20 04:00] VITALS: BP 104/47
--- NOTE | 2019-12-20 07:20 | NUR ---
RECIEVE REPORT. ALERT AND ORIENTED X4. UP TO RESTROOM. CONTROLLED AFIB ON TELEMETRY. DENIES ANY NEEDS. CONTINUE PLAN OF CARE AND SAFETY PRECAUTIONS.
[2019-12-20 07:23] LABS: BASOPHILS 0.3 % (0-2); EOSINOPHILS 0.8 % (0-7); HEMATOCRIT 46.1 % (36.0-48.0); HEMOGLOBIN 14.7 g/dL (12-16); IMMATURE GRANULOCYTES 0.1 % (0-5); MCHC 31.9 g/dL (31.0-37.0); MCV 90.9 fL (80.0-100.0); MEAN PLATELET VOLUME 10.9 fL (7.4-10.4); MONOCYTES 7.4 % (2-11); NEUTROPHILS 70.4 % (40-80); PLATELET COUNT 126 10x3/uL (130-400); RBC 5.07 10x6/uL (4.00-5.40); RDW 18.2 % (11.5-14.5); WBC 7.4 10x3/uL (4.8-10.8)
[2019-12-20 07:59] LABS: ANION GAP 13.6 mmol/L (8-16); CALCIUM 7.4 mg/dL (8.5-10.1); CREATININE - SERUM 8.8 mg/dL (0.6-1.3); POTASSIUM - SERUM 5.6 mmol/L (3.5-5.1)
[2019-12-20 09:42] VITALS: BP 82/42
[2019-12-20 20:00] VITALS: BP 82/43
--- NOTE | 2019-12-20 20:00 | NUR ---
REPORT RECIEVED AND ROUNDING COMPLETE. PATIENT LAYING IN BED EYES CLOSED BREATHING EVEN AND UNLABORED. NO DISTRESS NOTED CALL LIGHT WITHIN REACH BED IN LOWEST LOCKED POSITION.
[2019-12-21] VITALS: BP 91/61
[2019-12-21 04:00] VITALS: BP 91/76
[2019-12-21] MEDS ORDERED: MIDODRINE HCL5 MG PO (07:15)
--- NOTE | 2019-12-21 07:20 | NUR ---
RECIEVE REPORT. ALERT AND ORIENTED X4. SITTING UP ON SIDE OF BED. DENIES ANY NEEDS AT THIS TIME. NO SIGNS OF DISTRESS. CONTINUE PLAN OF CARE AND SAFETY PRECAUTIONS.
[2019-12-21 07:43] LABS: BASOPHILS 0.2 % (0-2); EOSINOPHILS 1.1 % (0-7); HEMATOCRIT 43.2 % (36.0-48.0); HEMOGLOBIN 13.9 g/dL (12-16); IMMATURE GRANULOCYTES 0.3 % (0-5); LYMPHOCYTES 21.4 % (15-50); MCH 29.3 pg (26.0-34.0); MCHC 32.2 g/dL (31.0-37.0); MCV 91.1 fL (80.0-100.0); MEAN PLATELET VOLUME 9.7 fL (7.4-10.4); MONOCYTES 8.9 % (2-11); NEUTROPHILS 68.1 % (40-80); PLATELET COUNT 135 10x3/uL (130-400); RBC 4.74 10x6/uL (4.00-5.40); RDW 17.6 % (11.5-14.5); WBC 6.6 10x3/uL (4.8-10.8)
[2019-12-21 08:06] LABS: ANION GAP 17.6 mmol/L (8-16); CARBON DIOXIDE 25.9 mmol/L (21.0-32.0); CREATININE - SERUM 9.8 mg/dL (0.6-1.3); POTASSIUM - SERUM 5.5 mmol/L (3.5-5.1)
[2019-12-21 08:14] LABS: CALCIUM 6.8 mg/dL (8.5-10.1)
--- NOTE | 2019-12-21 09:19 | MORECARE ---
CASE MANAGEMENT DISCHARGE SUMMARY PATIENT: GILLIAN ARRIAGA UNIT: [id number] ADM DATE: 12/18/19 AGE: 54 : 61 SEX: F ROOM/BED: D.7641 AUTHOR: DELIA MALDONADO PHYSICIAN: REFERRING PHYSICIAN: KALIA TAPIA MD DATE OF SERVICE: 12/21/19 Discharge Plan Patient Name: GILLIAN ARRIAGA [facility] [facility] 1965 Planned Disposition: Anticipated Discharge Date: Discharge Date: Expected LOS: Initial Reviewer: [email or web address] Initial Review Date: 12/18/2019 Generated: 12/21/19 10:19 am DCPIA - Discharge Planning Initial Assessment Updated by [email or web address]: Chitra Addison on 12/21/19 9:17 am * Is the patient Alert and Oriented? Yes * How many steps to enter\exit or inside your home? 0/0 * PCP [facility] * Pharmacy [address] * Preadmission Environment Home Alone * ADLs Independent * Equipment Oxygen Rolling Walker * Community resources currently utilized Other * Please name any agencies selected above. [facility] * Additional services required to return to the preadmission environment? Yes * Can the patient safely return to the preadmission environment? Yes * Has this patient been hospitalized within the prior 30 days at any hospital? No Patient Name: GILLIAN ARRIAGA Page [id number] at 0919 All edits/amendments must be made on the electronic document DICTATION DATE: 12/21/19918 COMMERCIAL FRONT LOAD OPERATOR: DM 12/21/19918 RPT#: [id number] DC DATE: STATUS: ADM IN [facility] [address] [place] [address] END OF REPORT
[2019-12-21 09:41] VITALS: BP 99/63
--- NOTE | 2019-12-21 10:13 | MORECARE ---
CASE MANAGEMENT DISCHARGE SUMMARY PATIENT: GILLIAN ARRIAGA UNIT: [id number] ADM DATE: 12/18/19 AGE: 54 : 61 SEX: F ROOM/BED: D.9154 AUTHOR: DELIA MALDONADO PHYSICIAN: REFERRING PHYSICIAN: KALIA OWNG MD DATE OF SERVICE: 12/21/19 Discharge Plan Patient Name: GILLIAN ARRIAGA Facility: [facility]:[place] : 1965 Planned Disposition: Anticipated Discharge Date: Discharge Date: Expected LOS: Initial Reviewer: [email or web address] Initial Review Date: 12/18/2019 Generated: 12/21/19 11:12 am Comments DCP- Discharge Planning Updated by [email or web address]: Chitra Addison on 12/21/19 9:[address] Patient Name: GILLIAN ARRIAGA Admission Status: ER Accout number: [id number] Admission Date: 12-18-2019 : 1965 Admission Diagnosis:END STAGE RENAL DISEASE Attending: Kalia Wong Current LOS: 3 Anticipated DC Date: Planned Disposition: Primary Insurance: MEDICARE A & B Discharge Planning Comments: CM met with patient to complete initial dc planning assessment. CM educated patient on the CM role and verbal consent given by patient to complete assessment. CM verified patient's address, phone number, and emergency contact phone numbers. Patient lives at home alone and is independent with her ADL'S. She has a rolling walker, bedside commode, shower chair, and home and portability o2 from [facility]. States she has an aide from [facility]. CASEY signed to resume [facility], the aide from [facility]. At discharge patient plans to return home and feels this is a safe discharge. CM discussed availability of home health, rehab services, and medical equipment. Patient states she would like to have [facility]. CASEY signed for [facility]. CM spoke with Asiya from [place] at [phone]. CM will continue to follow and will assist as needed with dc plans/needs. Street Light Servicer Helper: Chitra Addison DCPIA - Discharge Planning Initial Assessment Updated by [email or web address]: Chitra Addison on 12/21/19 9:17 am * Is the patient Alert and Oriented? Yes * How many steps to enter\exit or inside your home? 0/0 * PCP [facility] * Pharmacy [address] * Preadmission Environment Home Alone * ADLs Independent * Equipment Oxygen Rolling Walker * Community resources currently utilized Other * Please name any agencies selected above. [facility] * Additional services required to return to the preadmission environment? Yes * Can the patient safely return to the preadmission environment? Yes * Has this patient been hospitalized within the prior 30 days at any hospital? No External Providers External Provider: [facility] Next Contact Date: Service Request Date: Service Type: Resolution: Reviewer: Comments: Last DP export: 12/21/19 8:19 am Patient Name: GILLIAN ARRIAGA Page [phone] at 1013 All edits/amendments must be made on the electronic document DICTATION DATE: 12/21/19 1012 PODIATRIC AIDE: DOUGLAS 12/21/19 1012 RPT#: [id number] DC DATE: STATUS: ADM IN [facility] [address] [place] [address] END OF REPORT
--- NOTE | 2019-12-21 15:08 | NUR ---
ALERT AND ORIENTED X4. SITTING UP ON SIDE OF BED. DC LT FA IV TIP INTACT. DISCHARGE INSTRUCTIONS GIVEN VERBALLY AND WRITTEN. DISCHARGE PAPERS SIGNED ON CHART. ESCORT TO RIDE VIA WHEELCHAIR. REMAINS FREE FROM INJURY.
--- NOTE | 2019-12-21 21:34 | MORECARE ---
CASE MANAGEMENT DISCHARGE SUMMARY PATIENT: GILLIAN ARRIAGA UNIT: [id number] ADM DATE: 12/18/19 AGE: 54 : 61 SEX: F ROOM/BED: D.1000 AUTHOR: ERICADOC PHYSICIAN: REFERRING PHYSICIAN: KALIA WONG MD DATE OF SERVICE: 12/21/19 Discharge Plan Patient Name: GILLIAN ARRIAGA Facility: [facility]:[place] : 1965 Planned Disposition: Anticipated Discharge Date: Discharge Date: 12/21/2019 Expected LOS: Initial Reviewer: [email or web address] Initial Review Date: 12/18/2019 Generated: 12/21/19 10:33 pm Comments DCP- Discharge Planning Updated by [email or web address]: Chitra Addison on 12/21/19 9:[address] Patient Name: GILLIAN ARRIAGA Admission Status: ER Accout number: [id number] Admission Date: 12-18-2019 : 1965 Admission Diagnosis:END STAGE RENAL DISEASE Attending: Kalia Wong Current LOS: 3 Anticipated DC Date: Planned Disposition: Primary Insurance: MEDICARE A & B Discharge Planning Comments: CM met with patient to complete initial dc planning assessment. CM educated patient on the CM role and verbal consent given by patient to complete assessment. CM verified patient's address, phone number, and emergency contact phone numbers. Patient lives at home alone and is independent with her ADL'S. She has a rolling walker, bedside commode, shower chair, and home and portability o2 from [facility]. States she has an aide from [facility]. CASEY signed to resume [facility], the aide from [facility]. At discharge patient plans to return home and feels this is a safe discharge. CM discussed availability of home health, rehab services, and medical equipment. Patient states she would like to have Jesse . [facility] signed for [facility]. CM spoke with Asiya from [facility] at [phone]. CM will continue to follow and will assist as needed with dc plans/needs. Regional Owner Operator Truck Driver: Chitra Addison DCPIA - Discharge Planning Initial Assessment Updated by [email or web address]: Chitra Addison on 12/21/19 9:17 am * Is the patient Alert and Oriented? Yes * How many steps to enter\exit or inside your home? 0/0 * PCP [facility] * Pharmacy [address] * Preadmission Environment Home Alone * ADLs Independent * Equipment Oxygen Rolling Walker * Community resources currently utilized Other * Please name any agencies selected above. [facility] * Additional services required to return to the preadmission environment? Yes * Can the patient safely return to the preadmission environment? Yes * Has this patient been hospitalized within the prior 30 days at any hospital? No Last DP export: 12/21/19 9:13 am Patient Name: GILLIAN ARRIAGA Page [id number] at 2134 All edits/amendments must be made on the electronic document DICTATION DATE: 12/21/192132 PRINTED FORMS PROOFREADER: DOUGLAS 12/21/192132 RPT#: [id number] DC DATE:12/21/19 STATUS: DIS IN [facility] [address] [place] [address] END OF REPORT
== END 2019-12-21 15:20 | disposition home health service (06) | DRG 291 ==
LOC: D.ER 16:33 → D.M2 19:38 → D.SDCHOLD 12-20 14:44 → D.M2 12-20 14:44
PROVIDERS: Family Medicine; ADMIT Internal Medicine Nephrology; ATTEND Internal Medicine Nephrology
PROC: 5A1D70Z Performance of Urinary Filtration, Intermittent, Less than 6 Hours Per Day (ICD-10-PCS; principal; 2019-12-19)
DX: I13.2 Hypertensive heart and chronic kidney disease with heart failure and with stage 5 chronic kidney disease, or end stage renal disease (principal); N18.6 End stage renal disease; E87.1 Hypo-osmolality and hyponatremia; I50.9 Heart failure, unspecified; Z99.2 Dependence on renal dialysis; Z95.0 Presence of cardiac pacemaker; I48.91 Unspecified atrial fibrillation; F32.9 Major depressive disorder, single episode, unspecified; E11.22 Type 2 diabetes mellitus with diabetic chronic kidney disease; E11.65 Type 2 diabetes mellitus with hyperglycemia; F41.8 Other specified anxiety disorders; R55 Syncope and collapse; E87.5 Hyperkalemia; M79.671 Pain in right foot